=== PATIENT | male | born 1985 | race Caucasian/White ===

== ENCOUNTER 2024-04-01 15:46 | Inpatient (IN) | payer BC, OTHER ==
[2024-04-01 16:46] LABS: Appearance,Urine Clear (Clear); Bilirubin,Urine Negative (Negative); Blood,Urine Negative (Negative); Color,Urine Colorless; Glucose,Urine (UA) Negative (Negative); Ketones,Urine 1+ (Negative); Leukocyte Esterase,Urine Negative (Negative); Nitrite,Urine Negative (Negative); PH, Urine 5.5 (5.0-8.0); Protein,Urine Negative (Negative); Specific Gravity,Urine 1.005 (1.001-1.035); Urobilinogen,Urine <2.0 mg/dL (<2.0)
--- NOTE | 2024-04-01 16:50 | ED ---
Psych HPI - General Chief Complaint: Psychiatric Symptoms Stated Complaint: Suicidal Time Seen by Provider: 04/01/24 15:59 Source: EMS, RN notes reviewed, old records reviewed Mode of arrival: EMS Limitations: altered mental status - History of Present Illness Initial Comments: This is a 38-year-old male with alcohol intoxication coming in under petition for psychiatric evaluation for inappropriate activity for a few days now. MD Complaint: altered mental status, other (Current alcohol intoxication) -: days(s) Associated Psychiatric Symptoms: racing thoughts, auditory hallucinations Quality: constant, changing over time Improves With: none Worsens With: alcohol Context: recent alcohol abuse, significant life stressor Associated Symptoms: confusion Treatments Prior to Arrival: placed on mental health hold - Related Data Home Medications Medication Instructions Recorded Confirmed Levalbuterol Hfa Inhaler [Xopenex 2 puff INHALATION RT-Q4H PRN 04/01/24 04/01/24 Hfa Inhaler] Previous Rx's Medication Instructions Recorded DULoxetine HCL [Cymbalta] 60 mg PO DAILY 30 Days #30 cap 04/06/24 Melatonin 10 mg PO HS tab 04/06/24 hydrOXYzine HCL [Atarax] 10 mg PO TID PRN 30 Days #90 tab 04/06/24 Allergies Allergy/AdvReac Type Severity Reaction Status Date / Time pet danger Allergy Rash/Hives Uncoded 04/01/24 17:03 Review of Systems ROS Statement: Those systems with pertinent positive or pertinent negative responses have been documented in the HPI. ROS Other: All systems not noted in ROS Statement are negative. Past Medical History Past Medical History: Atrial Fibrillation, Asthma History of Any Multi-Drug Resistant Organisms: None Reported Additional Past Surgical History / Comment(s): colostomy bag Past Psychological History: No Psychological Hx Reported Smoking Status: Former smoker Past Alcohol Use History: Heavy, Occasional Past Drug Use History: Marijuana General Exam General appearance: appears intoxicated Head exam: Present: atraumatic, normocephalic, normal inspection Eye exam: Present: normal appearance, PERRL, EOMI. Absent: scleral icterus, conjunctival injection, periorbital swelling ENT exam: Present: normal exam, mucous membranes moist Neck exam: Present: normal inspection. Absent: tenderness, meningismus, lymphadenopathy Respiratory exam: Present: normal lung sounds bilaterally. Absent: respiratory distress, wheezes, rales, rhonchi, stridor Cardiovascular Exam: Present: regular rate, normal rhythm, normal heart sounds. Absent: systolic murmur, diastolic murmur, rubs, gallop, clicks GI/Abdominal exam: Present: soft, normal bowel sounds. Absent: distended, tenderness, guarding, rebound, rigid Extremities exam: Present: normal inspection, full ROM, normal capillary refill. Absent: tenderness, pedal edema, joint swelling, calf tenderness Back exam: Present: normal inspection Neurological exam: Present: alert, oriented X3, CN II-XII intact Psychiatric exam: Present: normal affect, normal mood Skin exam: Present: warm, dry, intact, normal color. Absent: rash Course Vital Signs 04/01/24 04/02/24 04/02/24 15:48 07:19 11:41 Temperature 98.9 F Pulse Rate 88 125 H 122 H Respiratory 20 18 18 Rate Blood Pressure 132/90 142/99 134/88 O2 Sat by Pulse 100 98 99 Oximetry - Reevaluation(s) Reevaluation #1: 04/01/24 18:24 Medical records reviewed Reevaluation #2: Medically clear for psychiatric evaluation Reevaluation #3: Was pt. sent in by a medical professional or institution (, PA, [employer], urgent care, hospital, or penitentiary...) When possible be specific @ -no Did you speak to anyone other than the patient for history (EMS, parent, family, police, friend...)? What history was obtained from this source @ -no Did you review nursing and triage notes (agree or disagree)? Why? @ -agree Are old charts reviewed (outside hosp., previous admission, EMS record, old EKG, old radiological studies, urgent care reports/EKG's, penitentiary records)? Report findings @ -yes Differential Diagnosis (chest pain, altered mental status, abdominal pain women, abdominal pain men, vaginal bleeding, weakness, fever, dyspnea, syncope, headache, dizziness, GI bleed, back pain, seizure, CVA, palpatations, mental health, musculoskeletal)? @ -prior EKG interpreted by me (3pts min.). @ -no X-rays interpreted by me (1pt min.). @ -no CT interpreted by me (1pt min.). @ -no U/S interpreted by me (1pt. min.). @ -no What testing was considered but not performed or refused? (CT, X-rays, U/S, labs)? Why? @ -none What meds were considered but not given or refused? Why? @ -none Did you discuss the management of the patient with other professionals (professionals i.e. , PA, [employer], lab, RT, psych nurse, social service director, mutual fund manager, teacher, coastal/harbor defense officer, onsite case manager)? Give summary @ -no Was smoking cessation discussed for >3mins.? @ -no Was critical care preformed (if so, how long)? @ -no Were there social determinants of health that impacted care today? How? (Homelessness, low income, unemployed, alcoholism, drug addiction, transportation, low edu. Level, literacy, decrease access to med. care, [facility], rehab)? @ -none Was there de-escalation of care discussed even if they declined (Discuss DNR or withdrawal of care, Hospice)? DNR status @ -no What co-morbidities impacted this encounter? (DM, HTN, Smoking, COPD, CAD, Cancer, CVA, ARF, Chemo, Hep., AIDS, mental health diagnosis, sleep apnea, morbid obesity)? @ -none Was patient admitted / discharged? Hospital course, mention meds given and route, prescriptions, significant lab abnormalities, going to OR and other pertinent info. @ - 38 male will be admitted for psychiatric evaluation and treatment transferred to inpatient treatment Admitted Undiagnosed new problem with uncertain prognosis? @ -no Drug Therapy requiring intensive monitoring for toxicity (Heparin, Nitro, Insulin, Cardizem)? @ -no Were any procedures done? @ -no Diagnosis/symptom? @ -Mental health depression and drug abuse Acute, or Chronic, or Acute on Chronic? @ -Acute Uncomplicated (without systemic symptoms) or Complicated (systemic symptoms)? @ -Complicated Side effects of treatment? @ -no Exacerbation, Progression, or Severe Exacerbation? @ -exacerbation Poses a threat to life or bodily function? How? (Chest pain, USA, AR, pneumonia, PE, COPD, DKA, ARF, appy, cholecystitis, CVA, Diverticulitis, Homicidal, Suicidal, threat to staff... and all critical care pts) @ -yes significant mental health disorder Reevaluation #4: Differential Mental Health Depression, anxiety, bipolar, psychosis, schizophrenia, borderline personality, situational depression, adjustment disorder, behavioral disorder, brain tumor, malingering, substance abuse, encephalopathy, medication reaction, dementia, hypothyroidism, degenerative neurologic disorder, lupus.... This is not meant to be all-inclusive list Medical Decision Making - Medical Decision Making 38 male will be admitted for psychiatric evaluation and treatment transferred to inpatient treatment - Lab Data Result diagrams: 04/03/24 08:53 04/03/24 08:53 Lab Results 04/01/24 04/02/24 Range/Units 16:36 08:20 Urine Color Colorless Urine Appearance Clear (Clear) Urine pH 5.5 (5.0-8.0) Ur Specific [place] 1.005 (1.001-1.035) Urine Protein Negative (Negative) Urine Glucose (UA) Negative (Negative) Urine Ketones 1+ H (Negative) Urine Blood Negative (Negative) Urine Nitrite Negative (Negative) Urine Bilirubin Negative (Negative) Urine Urobilinogen <2.0 (<2.0) mg/dL Ur Leukocyte Esterase Negative (Negative) Urine Opiates Screen Not Detected (NotDetected) Ur Oxycodone Screen Not Detected (NotDetected) Urine Methadone Screen Not Detected (NotDetected) Ur Barbiturates Screen Not Detected (NotDetected) U Tricyclic Antidepress Not Detected (NotDetected) Ur Phencyclidine Scrn Not Detected (NotDetected) Ur Amphetamines Screen Not Detected (NotDetected) U Methamphetamines Scrn Not Detected (NotDetected) U Benzodiazepines Scrn Not Detected (NotDetected) Urine Cocaine Screen Not Detected (NotDetected) U Marijuana (THC) Screen Detected H (NotDetected) SARS-CoV-2 (PCR) Not Detected (Not Detectd) Disposition Clinical Impression: Major depressive disorder without psychotic features, Hallucinogen abuse, Cannabis use disorder, Alcohol use disorder, Depression, Acute anxiety Disposition: TRANSFER TO PSYCH HOSP/UNIT Condition: Fair
[2024-04-01 16:57] LABS: Amphetamine Screen,Urine Not Detected (NotDetected); Barbiturate Screen,Urine Not Detected (NotDetected); Benzodiazepines Screen,Urine Not Detected (NotDetected); Cocaine Screen,Urine Not Detected (NotDetected); Methadone Screen, Urine Not Detected (NotDetected); Opiate Screen,Urine Not Detected (NotDetected); Oxycodone Screen, Urine Not Detected (NotDetected); Phencyclidine Screen,Urine Not Detected (NotDetected); Tricyclic Antidepressant,Urine Not Detected (NotDetected); Urn Cannabinoid Scrn Detected (NotDetected)
[2024-04-01] MEDS: LORazepam 1 MG TAB PO STA (17:21)
[2024-04-01] MEDS: diphenhydrAMINE 50 MG CAP PO STA (17:21)
[2024-04-02] MEDS ORDERED: hydrOXYzine HCL 50 MG/ML 1 ML VIAL IM PRN ×2 (11:35)
[2024-04-02] MEDS ORDERED: MAGNESIUM HYDROXIDE 2,400 MG/30 ML CUP PO PRN (11:35)
[2024-04-02] MEDS ORDERED: ACETAMINOPHEN TAB 325 MG TAB PO PRN (11:35)
[2024-04-02] MEDS ORDERED: MAG HYDROX/AL HYDROX/SIMETH 355 ML BOTTLE PO PRN (11:35)
[2024-04-02] MEDS ORDERED: HALOPERIDOL LACTATE 5 MG/ML 1 ML VIAL IM PRN (11:35)
[2024-04-02] MEDS ORDERED: LORazepam 2 MG/ML INJ IM PRN ×2 (11:43)
[2024-04-02] MEDS ORDERED: LORazepam 1 MG TAB PO PRN (11:43)
[2024-04-02] MEDS: DULoxetine HCL 30 MG CAPSULE.DR PO SCH (14:32)
--- NOTE | 2024-04-02 19:28 | P.HP ---
Psychiatric H&P - . H&P Date: 04/02/24 History & Physical: Allergies Allergy/AdvReac Type Severity Reaction Status Date / Time pet danger Allergy Rash/Hives Uncoded 04/01/24 17:03 Vital Signs Temp 98.3 F 04/02/24 12:23 Pulse 106 H 04/02/24 12:23 Resp 14 04/02/24 12:23 BP 135/92 04/02/24 12:23 Pulse Ox 98 04/02/24 12:23 FiO2 Intake & Output 04/01/24 04/02/24 04/02/24 18:59 06:59 18:59 Weight 83.915 kg 78.018 kg Laboratory Last Values Urine Color Colorless 04/01/24 16:36 Urine Appearance Clear (Clear) 04/01/24 16:36 Urine pH 5.5 (5.0-8.0) 04/01/24 16:36 Ur Specific [place] 1.005 (1.001-1.035) 04/01/24 16:36 Urine Protein Negative (Negative) 04/01/24 16:36 Urine Glucose (UA) Negative (Negative) 04/01/24 16:36 Urine Ketones 1+ (Negative) H 04/01/24 16:36 Urine Blood Negative (Negative) 04/01/24 16:36 Urine Nitrite Negative (Negative) 04/01/24 16:36 Urine Bilirubin Negative (Negative) 04/01/24 16:36 Urine Urobilinogen <2.0 mg/dL (<2.0) 04/01/24 16:36 Ur Leukocyte Esterase Negative (Negative) 04/01/24 16:36 Urine Opiates Screen Not Detected (NotDetected) 04/01/24 16:36 Ur Oxycodone Screen Not Detected (NotDetected) 04/01/24 16:36 Urine Methadone Screen Not Detected (NotDetected) 04/01/24 16:36 Ur Barbiturates Screen Not Detected (NotDetected) 04/01/24 16:36 U Tricyclic Antidepress Not Detected (NotDetected) 04/01/24 16:36 Ur Phencyclidine Scrn Not Detected (NotDetected) 04/01/24 16:36 Ur Amphetamines Screen Not Detected (NotDetected) 04/01/24 16:36 U Methamphetamines Scrn Not Detected (NotDetected) 04/01/24 16:36 U Benzodiazepines Scrn Not Detected (NotDetected) 04/01/24 16:36 Urine Cocaine Screen Not Detected (NotDetected) 04/01/24 16:36 U Marijuana (THC) Screen Detected (NotDetected) H 04/01/24 16:36 SARS-CoV-2 (PCR) Not Detected (Not Detectd) 04/02/24 08:20 04/02/24 12:45 IDENTIFYING DATA: Patient is a , employed, 38-year-old male who is presenting with suicidal ideation, homicidal ideation, and substance use. HPI: Patient was brought into the emergency department due to suicidal ideation, with sending a text message to his stating "he was going to put bullet in his brain". He also reportedly threatened Colette and Carol Villela, stating to Colette that he was going to pop her off. Patient is superficially cooperative with assessment and minimizes incidents leading to hospitalization. He endorses self-medicating with mushrooms and becomes tangential often throughout the interview while discussing his strong beliefs that mushrooms are a natural way to help himself. However, he was unwilling to divulge what he feels must be medicated by mushrooms. He simply states he needs to improve his serotonin receptors. Patient reports having drank a fifth of alcohol MOLDER BENCH due to interpersonal conflict with his , and then making damaging statements to her and to the family including the text messages that he sent above and the threats he made to his in-laws ([place]). He admits a long history of alcohol addiction beginning in 2019, drinking up to a fifth daily, with recurrent relapses until June 2023. Since then, he reports being a social drinker until recent binge. Patient also admits to beginning to use mushrooms since 2022 and has been using one and half to 3 and half grams of mushrooms once a month. He does not believe that he is addicted to this substance and has poor insight on the negative consequences of using this during motivational interviewing. However, while discussing his beliefs in mushrooms, he does admit to using them despite the trouble it has created between him and his , leading to her moving away with their children. He denies using substances while around their children. Patient denies any trouble with depression. He endorses fair sleep with melatonin. He reports good appetite, poor attention, and good energy. He denies anxiety. He denies symptoms consistent with micha. He denies any current suicidal ideation and homicidal ideation. He denies auditory and visual hallucinations. He denies any access to weapons/firearms. PSYCH HX: Not currently following up with any mental health provider. He reports hx of being on psychotropic meds but would not discuss this further Hospitalizations: Denies NSSI: Denies SA: Denies PMH: Denies ALLERGIES: Pet dander PCP: Lucia Metzger Head injuries: Denies Seizures: Denies SUBSTANCE HX: Mushrooms: Started using since 2022. 1.5-3.5 grams of mushrooms once month Alcohol: He was drinking up to a fifth daily back in 2019, on/off until he went to [place] on Jun 2023. Occasional drinks currently. Drank fifth prior to admission. Tobacco: Denies Cannabis: Loose leaf vaping 0.5-1 gram daily Denies using other substances SOCIAL/LEGAL HX: for 14 years; been with his since they were 17 years old. 3 children. Highest level of education: Engineering & minor in Math Vocation: it senior software engineer java for [employer] Legal problems: During childhood FAM PSYCH HX: Mother (was on Paxil & ECT), uncle, maternal grandfather committed suicide MENTAL STATUS EXAM: General Appearance: Patient appears to be stated age is alert, directable, and somewhat cooperative. Patient appears to have poor hygiene and grooming. Behavior: Patient is seated without any agitated behavior. Speech: Patient's speech is fluent and nonpressured. Mood/Affect: Patient reports their mood is "fine", affect is irritable Suicidality/Homicidality: Patient denies having any homicidal ideation intent or plan. Denies any suicidal ideations intent or plan Perceptions: Patient denies any visual hallucinations and denies any auditory hallucinations Though content/process: There is no evidence of any delusional thought content and thought process is rather tangential. Minimizing symptoms Memory and concentration: AOX3, grossly intact for the purposes of this session. Can spell "WORLD" backwards Judgment and insight: Poor STRENGTHS/WEAKNESSES: Strength is holding a job and family support. 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 Patient signed adult voluntary form and medication consent and is placed in patient's chart. -Medications : Start Cymbalta 30 mg daily. discussed risks, side effects, benefits, alternatives at length. - CIWA protocol with Ativan. Vitamin replacement. -Patient was counselled on substance abuse and desired to cut back on use. Motivational interviewing. -Patient was informed of the risks, benefits and side effects of the medication and patient verbally consented to taking the medications. Patient signed med consent form and was placed in chart. -Internal Medicine consult to perform medical evaluation and physical. -SW on board for discharge planning. Encourage patient to participate in groups to work on coping skills. 04/02/24 19:08
[2024-04-02] MEDS: LORazepam 1 MG TAB PO PRN (21:43)
[2024-04-02] MEDS: haloperidoL 5 MG TAB PO PRN (22:29)
[2024-04-02] MEDS: hydrOXYzine HCL 25 MG TAB PO PRN (22:29)
[2024-04-02] MEDS: IBUPROFEN 600 MG TAB PO PRN (23:43)
--- NOTE | 2024-04-03 04:11 | P.CONS ---
History of Present Illness - Reason for Consult Consult date: 04/03/24 - History of Present Illness The patient is a 38-year-old male with a PMH of asthma and alcohol abuse who had presented to the emergency room after alcohol intoxication and was petitioned for psychiatric evaluation. The patient was admitted to mental health unit where he was seen and evaluated. The patient reported that he had been feeling down about his life and had thereby decided to drink heavily for the last few d ays. Reports drinking half a liter of hard liquor daily. Denies any additional complaints. Denied experiencing chest discomfort, shortness of breath, fever, chills, cough, nausea, vomiting, abdominal pain, diarrhea. Review of systems: Pertinent positives and negatives as discussed in HPI, a complete review of systems was performed and all other systems are negative. Physical examination: General: non toxic, no distress, appears at stated age, normal weight Derm: no unusual rashes/lesions, no unusual ecchymoses, warm, dry Head: atraumatic, normocephalic, symmetric Eyes: EOMI, no lid lag, anicteric sclera ENT: Nose and ears atraumatic, no thrush, no pharyngeal erythema Neck: trachea midline, supple Mouth: no lip lesion, mucus membranes moist Cardiovascular: S1S2 reg, no murmur, no edema Lungs: CTA bilateral, no rhonchi, no rales , no accessory muscle use Abdominal: soft, nontender to palpation, no guarding Ext: no gross muscle atrophy, no contractures, Neuro: No gross focal neuro deficits noted Psych: Alert, oriented, appropriate affect Assessment: Alcohol abuse Transaminitis Hyponatremia Marijuana abuse Depression and suicidal ideation Imaging: EKG had revealed normal sinus rhythm at [address]/T wave changes noted as reviewed by me. Data Review: Laboratory evaluation had revealed sodium 135, chloride 97, AST 152, ALT 159, with UA unremarkable and urine toxicology positive for marijuana Plan: Monitor for signs of withdrawal with [facility] protocol Monitor CMP Advised on the importance of cessation Defer management of depression and suicidal ideation to primary psychiatry service Thank you for allowing us to participate in the care of this patient. We will follow peripherally. Do not hesitate to contact us with questions. Someone can be reached from the [facility] hospitalist group at all hours of the day at [phone]. Past Medical History Past Medical History: Atrial Fibrillation, Asthma Additional Past Medical History / Comment(s): Thorasic outlet syndrome History of Any Multi-Drug Resistant Organisms: None Reported Additional Past Surgical History / Comment(s): colostomy bag, Thorasic outlet syndrome Past Psychological History: No Psychological Hx Reported Smoking Status: Former smoker Past Alcohol Use History: Heavy, Occasional Past Drug Use History: Marijuana Medications and Allergies Home Medications Medication Instructions Recorded Confirmed Type Levalbuterol Hfa Inhaler [Xopenex 2 puff INHALATION RT-Q4H PRN 04/01/24 04/01/24 History Hfa Inhaler] DULoxetine HCL [Cymbalta] 60 mg PO DAILY 30 Days #30 cap 04/06/24 Rx Melatonin 10 mg PO HS tab 04/06/24 Rx hydrOXYzine HCL [Atarax] 10 mg PO TID PRN 30 Days #90 tab 04/06/24 Rx Allergies Allergy/AdvReac Type Severity Reaction Status Date / Time pet danger Allergy Rash/Hives Uncoded 04/01/24 17:03 Physical Exam Vitals: Vital Signs Temp Pulse Pulse Resp BP BP Pulse Ox 04/02/24 12:23 98.3 F 106 H 14 135/92 98 04/02/24 12:05 98.3 F 106 H 14 135/92 98 04/02/24 11:41 122 H 18 134/88 99 04/02/24 07:19 125 H 18 142/99 98 Intake and Output 04/02/24 04/02/24 04/03/24 14:59 22:59 06:59 Other: Weight 78.018 kg Results CBC & Chem 7: 04/03/24 08:53 04/03/24 08:53
[2024-04-03 09:28] LABS: Anisocytosis Slight; Basophils # (A) 0.1 k/uL (0-0.2); Basophils % (A) 1 %; Eosinophils # (A) 0.3 k/uL (0-0.7); Eosinophils % (A) 5 %; HCT 46.2 % (39.0-53.0); HGB 14.3 gm/dL (13.0-17.5); Lymphocytes # (A) 1.3 k/uL (1.0-4.8); Lymphocytes % (A) 20 %; MCH 26.7 pg (25.0-35.0); MCHC 30.9 g/dL (31.0-37.0); MCV 86.3 fL (80.0-100.0); Mean Platelet Volume 7.5; Monocytes # (A) 0.4 k/uL (0-1.0); Monocytes % (A) 6 %; Neutrophils # (A) 4.3 k/uL (1.3-7.7); Neutrophils % (A) 65 %; Platelet Count 316 k/uL (150-450); RBC 5.35 m/uL (4.30-5.90); RDW 16.6 % (11.5-15.5); WBC 6.5 k/uL (3.8-10.6)
[2024-04-03 09:44] LABS: ALT 159 U/L (4-49); AST 152 U/L (17-59); African American GFR (CKD) >90 (>60 ml/min/1.73 sqM); Albumin 4.8 g/dL (3.5-5.0); Alkaline Phosphatase 73 U/L (38-126); Anion Gap 10 mmol/L; Bilirubin, Delta 0.4 mg/dL (0.0-0.2); Bilirubin,Unconjugated 3.2 mg/dL (0.0-1.1); Blood Urea Nitrogen 16 mg/dL (9-20); Calcium 10.2 mg/dL (8.4-10.2); Carbon Dioxide 28 mmol/L (22-30); Chloride 97 mmol/L (98-107); Glucose 104 mg/dL (74-99); Non-African American GFR(CKD) >90 (>60 ml/min/1.73 sqM); Potassium 4.4 mmol/L (3.5-5.1); Sodium 135 mmol/L (137-145); Total Bilirubin 3.6 mg/dL (0.2-1.3); Total Protein 7.1 g/dL (6.3-8.2)
--- NOTE | 2024-04-03 13:22 | P.PN ---
Progress Note - Text Progress Note Date: 04/03/24 Interval History: Patient was seen wandering the hallways and was directable and agreeable to sp kyra with script writer in the office. Patient continues to be fixated on his belief in "natural treatment ". He explains that this includes his hope to start practicing spiritual practices, and his intent to continue using mushrooms. Discussed his blood work including elevated liver enzymes and patient states that he plans to discontinue her alcohol use. However, he admits later that he plans to use occasionally. Patient is grandiose and states that "I'm generally the smartest person in the room "and that he understands things are molecular level. He is resistant to the idea of even considering discontinuing mushroom use. He states that he has been tolerating Cymbalta well but has noticed feeling more tired with Vistaril 25 mg as needed. He requests further Vistaril dose to be lowered. He endorses that his mood is "great ". He says he tried to speak with his but she has not been responding to him much. He is hopeful to show her that he is safe to come home by being here. However, patient continues to be superficially cooperative. He signed intent to terminate AMA form yesterday. At this time patient denies any suicidal or homicidal ideations, intent or plan. Patient denies any auditory, visual hallucinations and denies any paranoia or delusions. Patient denies any side effects from the medications and has been compliant with meds. Mental Status Exam: General Appearance: Patient appears to be stated age is alert, directable, and somewhat cooperative. Patient appears to have poor hygiene and grooming. Behavior: Patient is seated without any agitated behavior. Speech: Patient's speech is fluent and nonpressured. Mood/Affect: Patient reports their mood is "great", affect is constricted Suicidality/Homicidality: Patient denies having any homicidal ideation intent or plan. Denies any suicidal ideations intent or plan Perceptions: Patient denies any visual hallucinations and denies any auditory hallucinations Though content/process: There is no evidence of any delusional thought content and thought process is rather tangential. Minimizing symptoms Memory and concentration: AOX3, grossly intact for the purposes of this session. 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 Patient signed adult voluntary form and medication consent and is placed in patient's chart. Signed AMA yesterday -Medications : Cymbalta 30 mg daily. discussed risks, side effects, benefits, alternatives at length. - CIWA protocol with Ativan. Vitamin replacement. -Vistaril PRN for anxiety -Patient was counselled on substance abuse and desired to cut back on use. Motivational interviewing. -Patient was informed of the risks, benefits and side effects of the medication and patient verbally consented to taking the medications. Patient signed med consent form and was placed in chart. -Internal Medicine consult to perform medical evaluation and physical. -SW on board for discharge planning. Encourage patient to participate in groups to work on coping skills.
[2024-04-03] MEDS: hydrOXYzine HCL 10 MG TAB PO PRN (22:00)
[2024-04-03] MEDS: hydrOXYzine pamoate 25 MG CAP PO PRN (22:41)
[2024-04-03 22:54] LABS: Chol/HDL Ratio 1.79 Ratio; LDL Cholesterol,Calculated 72.7 mg/dL (0.0-131.0); VLDL Calculation 16.28 mg/dL (5.00-40.00)
[2024-04-04] MEDS: MELATONIN 5 MG TABLET PO STA (01:09)
--- NOTE | 2024-04-04 12:03 | P.PN ---
Progress Note - Text Progress Note Date: 04/04/24 Interval History: Patient was seen wandering the hallways and was directable and agreeable to sp kyra with signwriter in the office. Patient states that he is not having any withdraw symptoms from alcohol. He claims the medications are doing pretty good for him. He is endorsing some anxiety from talking to his , who states that she is wanting a divorce. He states that his sleep is not good, and he has a problem initiating sleep. Patient is going to some groups, and states that his appetite is fair. Tool Repair Technician spoke with patient about going to rehab, patient states that he does not crave alcohol, and does not have a problem with alcohol. At this time patient denies any suicidal or homicidal ideations, intent or plan. Patient denies any auditory, visual hallucinations and denies any paranoia or delusions. Patient denies any side effects from the medications and has been compliant with meds. Mental Status Exam: General Appearance: Patient appears to be stated age is alert, directable, and somewhat cooperative. Patient appears to have improved hygiene and grooming. Behavior: Patient is seated without any agitated behavior. Speech: Patient's speech is fluent and nonpressured. Mood/Affect: Patient reports their mood is improving, affect is constricted Suicidality/Homicidality: Patient denies having any homicidal ideation intent or plan. Denies any suicidal ideations intent or plan Perceptions: Patient denies any visual hallucinations and denies any auditory hallucinations Though content/process: There is no evidence of any delusional thought content and thought process is linear and goal orientated. Minimizing symptoms Memory and concentration: AOX3, grossly intact for the purposes of this session. Judgment and insight: Poor, mildly improving Assessment Major depressive disorder without psychotic features, Alcohol use disorder Other hallucinogen use disorder - psilocybin Cannabis use disorder Plan: -Patient is admitted under voluntary status to [facility]HU for stabilization of psychiatric symptoms and safety. Patient signed adult voluntary form and medication consent and is placed in patient's chart. Signed AMA Thursday, patient rescinded the AMA on 04/04. -Medications : increase Cymbalta 60mg daily for depression/anxiety, add melatonin 10mg qhs for sleep. patient was offered anti cravings meds and declined at this time. -CIWA protocol with Ativan. Vitamin replacement. -Vistaril PRN for anxiety -SW on board for discharge planning. Encourage patient to participate in groups to work on coping skills. Patient refusing rehab at this time. rescinded AMA today. likely discharge in 2-3 days.
[2024-04-04] MEDS ORDERED: MELATONIN 5 MG TABLET PO SCH (21:00)
[2024-04-04] MEDS: MELATONIN 5 MG TABLET PO SCH (21:54)
[2024-04-05 07:16] VITALS: RESP 16
[2024-04-05] MEDS: DULoxetine HCL 60 MG CAPSULE.DR PO SCH (09:03)
--- NOTE | 2024-04-05 10:06 | P.PN ---
Progress Note - Text Progress Note Date: 04/05/24 Interval History: Patient was seen wandering the hallways and was directable and agreeable to sp kyra with commercial lines underwriter in the office. Patient states that he is feeling pretty good today. He states that his sleep was better last night. He states he was pretty anxious last night, due to his marital problems. Patient is going to groups, and interacting appropriately with his peers on the unit. He states that his appetite is fair. At this time patient denies any suicidal or homicidal ideations, intent or plan. Patient denies any auditory, visual hallucinations and denies any paranoia or delusions. Patient denies any side effects from the medications and has been compliant with meds. Mental Status Exam: General Appearance: Patient appears to be stated age is alert, directable, and somewhat cooperative. Patient appears to have improved hygiene and grooming. Behavior: Patient is seated without any agitated behavior. Speech: Patient's speech is fluent and nonpressured. Mood/Affect: Patient reports their mood is improving, affect is constricted mildly improving Suicidality/Homicidality: Patient denies having any homicidal ideation intent or plan. Denies any suicidal ideations intent or plan Perceptions: Patient denies any visual hallucinations and denies any auditory hallucinations Though content/process: There is no evidence of any delusional thought content and thought process is linear and goal orientated. Memory and concentration: AOX3, grossly intact for the purposes of this session. Judgment and insight: improving Assessment Major depressive disorder without psychotic features, Alcohol use disorder Other hallucinogen use disorder - psilocybin Cannabis use disorder Plan: -Patient is admitted under voluntary status to MHU for stabilization of psychiatric symptoms and safety. Patient signed adult voluntary form and medication consent and is placed in patient's chart. Signed AMA Thursday, patient rescinded the AMA on 04/04. -Medications : Cymbalta 60mg daily for depression/anxiety, melatonin 10mg qhs for sleep. patient was offered anti cravings meds and declined at this time. -CIWA protocol with Ativan. Vitamin replacement. -Vistaril PRN for anxiety -SW on board for discharge planning. Encourage patient to participate in groups to work on coping skills. Patient refusing rehab at this time. rescinded AMA . likely discharge tomorrow
[2024-04-06 09:55] VITALS: BP 169/88; PULSE 112; TEMP 97.2
--- NOTE | 2024-04-06 10:10 | P.DS ---
Providers Date of admission: 04/02/24 11:18 Expected date of discharge: 04/06/24 Attending physician: Sam Talley MD Consults: 04/02/24 11:35 Consult Physician Routine Consulting Provider: Nancy Physician Consult Reason/Comments: H & P w/medical management and medication mgmt Do you want consulting provider notified?: Yes Primary care physician: Stated None - Discharge Diagnosis(es) (1) Major depressive disorder without psychotic features Current Visit: Yes Status: Acute Priority: High (2) Alcohol use disorder Current Visit: Yes Status: Acute Priority: Medium (3) Hallucinogen abuse Current Visit: Yes Status: Acute Priority: High (4) Cannabis use disorder Current Visit: Yes Status: Acute Priority: Medium Hospital Course: Admission HPI: Admission note was completed by Dr Bocanegra "Patient was brought into the emergency department due to suicidal ideation, with sending a text message to his stating "he was going to put bullet in his brain". He also reportedly threatened Colette and Carol Villela, stating to Colette that he was going to pop her off. Patient is superficially cooperative with assessment and minimizes incidents leading to hospitalization. He endorses self-medicating with mushrooms and becomes tangential often throughout the interview while discussing his strong beliefs that mushrooms are a natural way to help himself. However, he was unwilling to divulge what he feels must be medicated by mushrooms. He simply states he needs to improve his serotonin receptors. 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 He admits a long history of alcohol addiction beginning in 2019, drinking up to a fifth daily, with recurrent relapses until June 2023. Since then, he reports being a social drinker until recent binge. Patient also admits to beginning to use mushrooms since 2022 and has been using one and half to 3 and half grams of mushrooms once a month. He does not believe that he is addicted to this substance and has poor insight on the negative consequences of using this during motivational interviewing. However, while discussing his beliefs in mushrooms, he does admit to using them despite the trouble it has created between him and his , leading to her moving away with their children. He denies using substances while around their children. Patient denies any trouble with depression. He endorses fair sleep with melatonin. He reports good appetite, poor attention, and good energy. He denies anxiety. He denies symptoms consistent with micha. He denies any current suicidal ideation and homicidal ideation. He denies auditory and visual hallucinations. He denies any access to weapons/firearms." Hospital course: Upon admission to the unit patient was [directable and agreeable to commence treatment and signed adult voluntary form], shortly after patient signed an AMA however patient ended up rescinding his AMA. Patient got along well with other patients on the unit and followed unit protocol. Patient was compliant with the medications and denied any side effects throughout hospital course. Patient was started on Cymbalta increased to dose of 60 mg daily for depression/anxiety, melatonin 10 mg nightly for sleep, patient was offered anticraving medications for alcohol however refused them. Patient spoke of his stressors and engaged in therapy both group and individual. Patient was also seen by medical team for history and physical exam. Throughout the course of the hospitalization patient gradually improved with regards to mood, anxiety, sleep and became more future oriented with improved insight and judgment. On the day of discharge patient denied any suicidal or homicidal ideations intent or plan denied any auditory or visual hallucinations. Patient endorsed wanting to live for his health and family. The patient denied any access to guns or weapons. Patient denied any paranoia and did not endorse any delusions. Patient does have a significant history of substance abuse and was counseled on abstaining from all substances including alcohol and marijuana. Patient was offered however declined inpatient substance-abuse rehab. Patient was also counseled on the medications and need for regular compliance and was encouraged to follow-up with their outpatient appointment for mental health and also for primary care. Prior to discharge a family meeting will be arranged by social worker aide to answer any questions and ensure safety upon discharge. Mental status exam: General Appearance: Patient appears to be thin, wearing glasses, stated age is alert, pleasant, and cooperative. Patient is in no acute distress and has improved hygiene and grooming Behavior: Patient is calmly seated without any agitated behavior. Speech: Patient's speech is fluent and nonpressured. Mood/Affect: Patient reports their mood is "better", affect is congruent and euthymic. Suicidality/Homicidality: Patient denies having any suicidal or homicidal ideation intent or plan. Perceptions: Patient denies any auditory or visual hallucinations. Though content/process: There is no evidence of any delusional thought content and thought process is linear and goal-directed. More future oriented Memory and concentration: AOX3, grossly intact for the purposes of this session. Can spell "WORLD" backwards correctly. Judgment and insight: improved with guarded prognosis Impression: Major depressive disorder without psychotic features, Alcohol use disorder Other hallucinogen use disorder - psilocybin Cannabis use disorder Plan: -Continue with discharge today as patient has improved and stabilized psychiatrically and is not currently an imminent threat to himself and/or others. Patient will remain at chronically elevated risk for harm to self and/or others due to his impulsivity and polysubstance abuse. -Continue medications: Cymbalta 60 mg daily for mood/anxiety, melatonin 10 mg nightly for sleep. -Patient was counseled on the need for medication compliance and appropriate follow-up at mental health and also primary care for medical issues. Patient verbalized understanding and agreed. -Social work to arrange for and conduct family meeting to ensure safety upon discharge and answer any questions/concerns. Social work also to arrange for patients follow up appointments for psychiatric care along with follow up with primary care provider. -Patient counseled on abstaining from recreational drugs and marijuana and alcohol. Was informed/educated on the adverse effects on their physical and mental health. Patient verbally agreed and understood. Patient was offered substance abuse treatment however declined at this time. -Patient was instructed to return to the hospital or seek immediate medical care if their psychiatric or medical symptoms do worsen or reoccur. Allergies Allergy/AdvReac Type Severity Reaction Status Date / Time pet danger Allergy Rash/Hives Uncoded 04/01/24 17:03 Laboratory Results WBC 6.5 k/uL (3.8-10.6) 04/03/24 08:53 RBC 5.35 m/uL (4.30-5.90) 04/03/24 08:53 Hgb 14.3 gm/dL (13.0-17.5) 04/03/24 08:53 Hct 46.2 % (39.0-53.0) 04/03/24 08:53 MCV 86.3 fL (80.0-100.0) 04/03/24 08:53 MCH 26.7 pg (25.0-35.0) 04/03/24 08:53 MCHC 30.9 g/dL (31.0-37.0) L 04/03/24 08:53 RDW 16.6 % (11.5-15.5) H 04/03/24 08:53 Plt Count 316 k/uL (150-450) 04/03/24 08:53 MPV 7.5 04/03/24 08:53 Neutrophils % 65 % 04/03/24 08:53 Lymphocytes % 20 % 04/03/24 08:53 Monocytes % 6 % 04/03/24 08:53 Eosinophils % 5 % 04/03/24 08:53 Basophils % 1 % 04/03/24 08:53 Neutrophils # 4.3 k/uL (1.3-7.7) 04/03/24 08:53 Lymphocytes # 1.3 k/uL (1.0-4.8) 04/03/24 08:53 Monocytes # 0.4 k/uL (0-1.0) 04/03/24 08:53 Eosinophils # 0.3 k/uL (0-0.7) 04/03/24 08:53 Basophils # 0.1 k/uL (0-0.2) 04/03/24 08:53 Anisocytosis Slight 04/03/24 08:53 Sodium 135 mmol/L (137-145) L 04/03/24 08:53 Potassium 4.4 mmol/L (3.5-5.1) 04/03/24 08:53 Chloride 97 mmol/L (98-107) L 04/03/24 08:53 Carbon Dioxide 28 mmol/L (22-30) 04/03/24 08:53 Anion Gap 10 mmol/L 04/03/24 08:53 BUN 16 mg/dL (9-20) 04/03/24 08:53 Creatinine 0.79 mg/dL (0.66-1.25) 04/03/24 08:53 Est GFR (CKD-EPI)AfAm >90 (>60 ml/min/1.73 sqM) 04/03/24 08:53 Est GFR (CKD-EPI)NonAf >90 (>60 ml/min/1.73 sqM) 04/03/24 08:53 Glucose 104 mg/dL (74-99) H 04/03/24 08:[address] Glu mg/dL 114 mg/dL 04/03/24 08:57 Hemoglobin A1c 5.6 % (<=6.0) 04/03/24 08:57 Calcium 10.2 mg/dL (8.4-10.2) 04/03/24 08:53 Total Bilirubin 3.6 mg/dL (0.2-1.3) H 04/03/24 08:53 Conjugated Bilirubin 0.0 mg/dL (0.0-0.3) 04/03/24 08:53 Unconjugated Bilirubin 3.2 mg/dL (0.0-1.1) H 04/03/24 08:53 Delta Bilirubin 0.4 mg/dL (0.0-0.2) H 04/03/24 08:53 AST 152 U/L (17-59) H 04/03/24 08:53 ALT 159 U/L (4-49) H 04/03/24 08:53 Alkaline Phosphatase 73 U/L (38-126) 04/03/24 08:53 Total Protein 7.1 g/dL (6.3-8.2) 04/03/24 08:53 Albumin 4.8 g/dL (3.5-5.0) 04/03/24 08:53 Triglycerides 81.40 mg/dL (0.00-149.00) 04/03/24 08:53 Cholesterol 202.00 mg/dL (0.00-200.00) H 04/03/24 08:53 LDL Cholesterol, Calc 72.7 mg/dL (0.0-131.0) 04/03/24 08:53 VLDL Cholesterol, Calc 16.28 mg/dL (5.00-40.00) 04/03/24 08:53 HDL Cholesterol 113.00 mg/dL (40.00-60.00) H 04/03/24 08:53 Cholesterol/HDL Ratio 1.79 Ratio 04/03/24 08:53 TSH 1.490 mIU/L (0.465-4.680) 04/03/24 08:53 Urine Color Colorless 04/01/24 16:36 Urine Appearance Clear (Clear) 04/01/24 16:36 Urine pH 5.5 (5.0-8.0) 04/01/24 16:36 Ur Specific [place] 1.005 (1.001-1.035) 04/01/24 16:36 Urine Protein Negative (Negative) 04/01/24 16:36 Urine Glucose (UA) Negative (Negative) 04/01/24 16:36 Urine Ketones 1+ (Negative) H 04/01/24 16:36 Urine Blood Negative (Negative) 04/01/24 16:36 Urine Nitrite Negative (Negative) 04/01/24 16:36 Urine Bilirubin Negative (Negative) 04/01/24 16:36 Urine Urobilinogen <2.0 mg/dL (<2.0) 04/01/24 16:36 Ur Leukocyte Esterase Negative (Negative) 04/01/24 16:36 Urine Opiates Screen Not Detected (NotDetected) 04/01/24 16:36 Ur Oxycodone Screen Not Detected (NotDetected) 04/01/24 16:36 Urine Methadone Screen Not Detected (NotDetected) 04/01/24 16:36 Ur Barbiturates Screen Not Detected (NotDetected) 04/01/24 16:36 U Tricyclic Antidepress Not Detected (NotDetected) 04/01/24 16:36 Ur Phencyclidine Scrn Not Detected (NotDetected) 04/01/24 16:36 Ur Amphetamines Screen Not Detected (NotDetected) 04/01/24 16:36 U Methamphetamines Scrn Not Detected (NotDetected) 04/01/24 16:36 U Benzodiazepines Scrn Not Detected (NotDetected) 04/01/24 16:36 Urine Cocaine Screen Not Detected (NotDetected) 04/01/24 16:36 U Marijuana (THC) Screen Detected (NotDetected) H 04/01/24 16:36 SARS-CoV-2 (PCR) Not Detected (Not Detectd) 04/02/24 08:20 Vital Signs Temp 97.8 F 04/05/24 06:39 Pulse 100 04/05/24 15:54 Resp 16 04/05/24 06:39 BP 128/89 04/05/24 15:54 Pulse Ox 99 04/05/24 06:39 FiO2 Patient Condition at Discharge: Stable Plan - Discharge Summary Discharge Rx Participant: No New Discharge Prescriptions: New hydrOXYzine HCL [Atarax] 10 mg PO TID PRN 30 Days #90 tab PRN Reason: Anxiety DULoxetine HCL [Cymbalta] 60 mg PO DAILY 30 Days #30 cap Melatonin 10 mg PO HS tab Continue Levalbuterol Hfa Inhaler [Xopenex Hfa Inhaler] 2 puff INHALATION RT-Q4H PRN PRN Reason: Wheezing Discharge Medication List Levalbuterol Hfa Inhaler [Xopenex Hfa Inhaler] 2 puff INHALATION RT-Q4H PRN 04/01/24 [History] DULoxetine HCL [Cymbalta] 60 mg PO DAILY 30 Days #30 cap 04/06/24 [Rx] Melatonin 10 mg PO HS tab 04/06/24 [Rx] hydrOXYzine HCL [Atarax] 10 mg PO TID PRN 30 Days #90 tab 04/06/24 [Rx] Follow up Appointment(s)/Referral(s[facility] - 04/11/24 11:30 am (04/11 11:30am paperwork 04/11 12:00-13:00 with Johnnie Lund) None,Stated [Primary Care Provider] - 1-2 days Discharge Disposition: HOME SELF-CARE
--- NOTE | 2024-04-08 03:45 | P.CONS ---
History of Present Illness - Reason for Consult Consult date: 04/08/24 Past Medical History Past Medical History: Atrial Fibrillation, Asthma Additional Past Medical History / Comment(s): Thorasic outlet syndrome History of Any Multi-Drug Resistant Organisms: None Reported Additional Past Surgical History / Comment(s): colostomy bag, Thorasic outlet syndrome Past Psychological History: No Psychological Hx Reported Smoking Status: Former smoker Past Alcohol Use History: Heavy, Occasional Past Drug Use History: Marijuana Medications and Allergies Home Medications Medication Instructions Recorded Confirmed Type Levalbuterol Hfa Inhaler [Xopenex 2 puff INHALATION RT-Q4H PRN 04/01/24 04/01/24 History Hfa Inhaler] DULoxetine HCL [Cymbalta] 60 mg PO DAILY 30 Days #30 cap 04/06/24 Rx Melatonin 10 mg PO HS tab 04/06/24 Rx hydrOXYzine HCL [Atarax] 10 mg PO TID PRN 30 Days #90 tab 04/06/24 Rx Allergies Allergy/AdvReac Type Severity Reaction Status Date / Time pet danger Allergy Rash/Hives Uncoded 04/01/24 17:03 Results CBC & Chem 7: 04/03/24 08:53 04/03/24 08:53
== END 2024-04-06 12:15 | disposition home or self-care (01) | DRG 881 ==
LOC: EC 15:46 → 3MHU 04-02 11:18
PROVIDERS: ADMIT Psychiatry & Neurology Psychiatry; ATTEND Psychiatry & Neurology Psychiatry
DX: F32.9 Major depressive disorder, single episode, unspecified (principal); R45.851 Suicidal ideations; F10.24 Alcohol dependence with alcohol-induced mood disorder; E87.1 Hypo-osmolality and hyponatremia; I48.91 Unspecified atrial fibrillation; R45.850 Homicidal ideations; J45.909 Unspecified asthma, uncomplicated; F16.10 Hallucinogen abuse, uncomplicated; F12.10 Cannabis abuse, uncomplicated; F10.229 Alcohol dependence with intoxication, unspecified; R74.01 Elevation of levels of liver transaminase levels; F41.9 Anxiety disorder, unspecified; Z87.891 Personal history of nicotine dependence; Z11.52 Encounter for screening for COVID-19; Z93.3 Colostomy status; Z79.899 Other long term (current) drug therapy; Z63.0 Problems in relationship with spouse or partner; Z71.41 Alcohol abuse counseling and surveillance of alcoholic; Z71.51 Drug abuse counseling and surveillance of drug abuser
CPT/HCPCS: 80053; 80061; 80306; 81003; 82075; 82248; 83036; 84443; 85025; 87635; 93005; 99285

== ENCOUNTER 2024-04-10 12:26 | Emergency (ER) | payer BC ==
--- NOTE | 2024-04-10 13:35 | ED ---
General Adult HPI - General Chief complaint: Psychiatric Symptoms Stated complaint: Petition Time Seen by Provider: 04/10/24 12:58 Source: patient Mode of arrival: ambulatory Limitations: no limitations - History of Present Illness Initial comments: Dictation was produced using [employer] dictation software. please excuse any grammatical, word or spelling errors. Chief Complaint: 38-year-old male brought into the emergency department for psychiatric evaluation History of Present Illness: Patient 30-year-old male patient allegedly had several alcoholic beverages prior to coming to the ER. Patient was brought by police apparently patient has been having psychiatric symptoms. Patient denies such claims states that he is arguing with his and called the national sales consultant on him. The ROS documented in this emergency department record has been reviewed and confirmed by me. Those systems with pertinent positive or negative responses have been documented in the HPI. All other systems are other negative and/or noncontributory. - Related Data Home Medications Medication Instructions Recorded Confirmed Levalbuterol Hfa Inhaler [Xopenex 2 puff INHALATION RT-Q4H PRN 04/01/24 04/10/24 Hfa Inhaler] DULoxetine HCL [Cymbalta] 60 mg PO DIRECTED 04/10/24 04/10/24 hydrOXYzine HCL [Atarax] 10 mg PO DIRECTED PRN 04/10/24 04/10/24 Previous Rx's Medication Instructions Recorded Melatonin 10 mg PO HS tab 04/06/24 Allergies Allergy/AdvReac Type Severity Reaction Status Date / Time pet danger Allergy Rash/Hives Uncoded 04/10/24 13:51 Review of Systems ROS Statement: Those systems with pertinent positive or pertinent negative responses have been documented in the HPI. ROS Other: All systems not noted in ROS Statement are negative. Past Medical History Past Medical History: Atrial Fibrillation, Asthma Additional Past Medical History / Comment(s): Thorasic outlet syndrome History of Any Multi-Drug Resistant Organisms: None Reported Additional Past Surgical History / Comment(s): colostomy bag Past Psychological History: Unable to Obtain Smoking Status: Former smoker Past Alcohol Use History: Heavy, Occasional Past Drug Use History: Marijuana General Exam - General Exam Comments Initial Comments: General: Well-appearing, nontoxic, no acute distress. Head: Normocephalic, atraumatic Eyes: PERRLA, EOMI ENT: Airway patent Chest: Nonlabored breathing Skin: No visual rash, normal skin tone Neuro: Alert and oriented 3 Musculoskeletal: No gross abnormalities Limitations: no limitations Course Vital Signs 04/10/24 04/10/24 12:34 20:33 Temperature 97.5 F L 98.1 F Pulse Rate 107 H 76 Respiratory 20 16 Rate Blood Pressure 138/81 112/76 O2 Sat by Pulse 97 Oximetry - Reevaluation(s) Reevaluation #1: 04/17/24 21:10 Patient was reviewed at later date. Patient was eval by EPS and was cleared for discharge. Medical Decision Making - Medical Decision Making Was pt. sent in by a medical professional or institution (, PA, EMERGING TECHNOLOGIES DIRECTOR, urgent care, hospital, or longterm...) When possible be specific @ -No Did you speak to anyone other than the patient for history (EMS, parent, family, police, friend...)? What history was obtained from this source @ -No Did you review nursing and triage notes (agree or disagree)? Why? @ -I reviewed and agree with nursing and triage notes Were old charts reviewed (outside hosp., previous admission, EMS record, old EKG, old radiological studies, urgent care reports/EKG's, longterm records)? Report findings @ -No old charts were reviewed Differential Diagnosis (chest pain, altered mental status, abdominal pain women, abdominal pain men, vaginal bleeding, musculoskeletal, weakness, fever, d yspnea, syncope, headache, dizziness, GI bleed, back pain, seizure, CVA, palpatations, mental health)? @ -Differential Mental Health: Depression, anxiety, bipolar, psychosis, schizophrenia, borderline personality, situational depression, adjustment disorder, behavioral disorder, brain tumor, malingering, substance abuse, encephalopathy, medication reaction, dementia, hypothyroidism, degenerative neurologic disorder, lupus.... This is not meant to be all-inclusive list EKG interpreted by me (3pts min.). @ -None done X-rays interpreted by me (1pt min.). @ -None done CT interpreted by me (1pt min.). @ -None done U/S interpreted by me (1pt. min.). @ -None done What testing was considered but not performed or refused? (CT, X-rays, U/S, labs)? Why? @ -None What meds were considered but not given or refused? Why? @ -None Was smoking cessation discussed for >3mins.? @ -No Were there social determinants of health that impacted care today? How? (Homelessness, low income, unemployed, alcoholism, drug addiction, transportation, low edu. Level, literacy, decrease access to med. care, [facility], rehab)? @ -No Was there de-escalation of care discussed even if they declined (Discuss DNR or withdrawal of care, Hospice)? DNR status @ -No What co-morbidities impacted this encounter? (DM, HTN, Smoking, COPD, CAD, Cancer, CVA, ARF, Chemo, Hep., AIDS, mental health diagnosis, sleep apnea, morb id obesity)? @ -None Was patient admitted / discharged? Hospital course, mention meds given and route, prescriptions, significant lab abnormalities, going to OR and other pertinent info. @ -38-year-old male presents to the emergency department for psychiatric evaluation. Vital signs stable. Breath alcohol test is 0.186. Patient pending sobriety for EPS eval. Patient care signed out to Dr. Vidales at 4:00 PM Did you discuss the management of the patient with other professionals (professionals i.e. , PA, EMERGING TECHNOLOGIES DIRECTOR, lab, RT, psych nurse, social human services assistants, enterprise sales executive, teacher, low altitude air defense officer, case management assistant)? Give summary @ -No Was critical care preformed (if so, how long)? @ -No Undiagnosed new problem with uncertain prognosis? @ -No Drug Therapy requiring intensive monitoring for toxicity (Heparin, Nitro, Insulin, Cardizem)? @ -No Were any procedures done? @ -No Diagnosis/symptom? Acute, or Chronic, or Acute on Chronic? Uncomplicated (without systemic symptoms) or Complicated (systemic symptoms)? @ -Psychotic symptoms Side effects of treatment? @ -No Exacerbation, Progression, or Severe Exacerbation? @ -No Poses a threat to life or bodily function? How? (Chest pain, [place], [place], pneumonia, PE, COPD, DKA, ARF, appy, cholecystitis, CVA, Diverticulitis, Homicidal, Suicidal, threat to staff... and all critical care pts) @ -yes Disposition Clinical Impression: Suicidal ideation Disposition: HOME SELF-CARE Condition: Stable Is patient prescribed a controlled substance at d/c from ED?: No Referrals: None,Stated [Primary Care Provider] - 1-2 days
[2024-04-10] MEDS: LORazepam 2 MG/ML INJ IV STA (15:12)
[2024-04-10] MEDS: LORazepam 2 MG/ML INJ IM STA (15:13)
[2024-04-10 20:35] VITALS: BP 112/76; PULSE 76; RESP 16; TEMP 98.1
== END 2024-04-10 20:35 | disposition home or self-care (01) ==
LOC: EC 12:26
DX: R45.851 Suicidal ideations (principal); Z91.09 Other allergy status, other than to drugs and biological substances; Z87.891 Personal history of nicotine dependence
CPT/HCPCS: 82075; 99284; 96372; J2060

== ENCOUNTER 2024-04-27 15:39 | Emergency (ER) | payer BC ==
[2024-04-27 19:12] LABS: Amphetamine Screen,Urine Not Detected (NotDetected); Barbiturate Screen,Urine Not Detected (NotDetected); Benzodiazepines Screen,Urine Not Detected (NotDetected); Cocaine Screen,Urine Not Detected (NotDetected); Methadone Screen, Urine Not Detected (NotDetected); Opiate Screen,Urine Not Detected (NotDetected); Oxycodone Screen, Urine Not Detected (NotDetected); Phencyclidine Screen,Urine Not Detected (NotDetected); Tricyclic Antidepressant,Urine Not Detected (NotDetected); Urn Cannabinoid Scrn Not Detected (NotDetected)
--- NOTE | 2024-04-27 19:54 | ED ---
General Adult HPI - General Chief complaint: Psychiatric Symptoms Stated complaint: petition Time Seen by Provider: 04/27/24 16:23 Source: police Mode of arrival: ambulatory Limitations: no limitations - History of Present Illness Initial comments: Patient presents today on court order for psychiatric evaluation after being released from [facility]. Patient states he is here due to court order.Denies SI/HI, hallucinations, anxiety, trouble sleeping. Denies alcohol or drug abuse. Denies fevers, chills, headaches, dizziness. Denies any complaints. - Related Data Home Medications Medication Instructions Recorded Confirmed No Known Home Medications 04/27/24 04/27/24 Allergies Allergy/AdvReac Type Severity Reaction Status Date / Time pet danger Allergy Rash/Hives Uncoded 04/27/24 20:17 Review of Systems ROS Statement: Those systems with pertinent positive or pertinent negative responses have been documented in the HPI. ROS Other: All systems not noted in ROS Statement are negative. Past Medical History Past Medical History: Atrial Fibrillation, Asthma Additional Past Medical History / Comment(s): Thorasic outlet syndrome History of Any Multi-Drug Resistant Organisms: None Reported Past Surgical History: Bowel Resection Additional Past Surgical History / Comment(s): colostomy bag Past Psychological History: Unable to Obtain Smoking Status: Former smoker Past Alcohol Use History: Heavy, Occasional Past Drug Use History: Marijuana General Exam - General Exam Comments Initial Comments: PE: CONSTITUTIONAL: no apparent distress, well appearing SKIN: warm, dry, no jaundice, hives or petechiae EYES: pupils are equally round, extraocular movements intact without nystagmus, clear conjunctiva, non-icteric sclera HENT: normocephalic, atraumatic, moist mucus membranes, oropharynx clear without exudates NECK: Nontender and supple with no nuchal rigidity, no lymphadenopathy, full range of motion PULMONARY: clear to auscultation without wheezes, rhonchi, or rales, normal excursion, no accessory muscle use and no stridor CARDIOVASCULAR: regular rate, rhythm, normal S1 and S2. No appreciated murmurs. Strong radial pulses with intact distal perfusion GASTROINTESTINAL: soft, non-tender, non-distended, no palpable masses, no rebound or guarding LYMPHATICS: no edema in lower extremities, MUSCULOSKELETAL: Extremities have no gross deformity, no edema, redness, or swelling NEUROLOGIC: _a/o x 3, GCS 15, normal mentation and speech. Moves all extremities x 4 without motor or sensory deficit PSYCHIATRIC: _normal mood and affect, thought process is clear and linear, patient does not appear to be responding to internal stimuli, he is calm, conversant, denies suicidal or homicidal ideation, Limitations: no limitations Course Vital Signs 04/27/24 04/27/24 04/27/24 16:04 18:19 23:03 Temperature 98.3 F 97.9 F Pulse Rate 77 74 80 Respiratory 18 18 16 Rate Blood Pressure 148/89 147/74 157/100 O2 Sat by Pulse 100 97 100 Oximetry Medical Decision Making - Medical Decision Making Was pt. sent in by a medical professional or institution (, PA, WET MILLING WHEEL OPERATOR, urgent care, hospital, or long-term...) When possible be specific @ -Patient sent by PD on court order Did you speak to anyone other than the patient for history (EMS, parent, family, police, friend...)? What history was obtained from this source @ -No Did you review nursing and triage notes (agree or disagree)? Why? @ -I reviewed and agree with nursing and triage notes Were old charts reviewed (outside hosp., previous admission, EMS record, old EKG, old radiological studies, urgent care reports/EKG's, long-term records)? Report findings @ -Patient presents with a court order for psychiatric evaluation at hospital, presents with petition from spouse stating patient has been making statements such as feeling like he is "seeing his DNA" Differential Diagnosis (chest pain, altered mental status, abdominal pain women, abdominal pain men, vaginal bleeding, weakness, fever, dyspnea, syncope, headache, dizziness, GI bleed, back pain, seizure, CVA, palpatations, mental health, musculoskeletal)? @ -Not applicable patient here for court ordered psychiatric evaluation after release from senior living X-rays interpreted by me (1pt min.). @ -None done CT interpreted by me (1pt min.). @ -None done U/S interpreted by me (1pt. min.). @ -None done What testing was considered but not performed or refused? (CT, X-rays, U/S, labs)? Why? @ -Considered UDS however patient denies illicit drug use and does not appear to be behaving as though he is under the influence of drugs or alcohol. He is not agitated, diaphoretic, excessively sleepy or lethargic, does not appear to be responding to internal stimuli, is calm, conversant, and cooperative, denies hallucinations and does not appear to be hallucinating, speech is clear, he displays no nystagmus What meds were considered but not given or refused? Why? @ -None Did you discuss the management of the patient with other professionals (cricket cheek i.e. , PA, WET MILLING WHEEL OPERATOR, lab, RT, psych nurse, social work msw, dimension specification inspector, teacher, diplomatic officer, director case)? Give summary @ -Yes, discussed with EPS RN Was smoking cessation discussed for >3mins.? @ -No Was critical care preformed (if so, how long)? @ -No Were there social determinants of health that impacted care today? How? (Homelessness, low income, unemployed, alcoholism, drug addiction, transportation, low edu. Level, literacy, decrease access to med. care, senior living, rehab)? @ -No Was there de-escalation of care discussed even if they declined (Discuss DNR or withdrawal of care, Hospice)? DNR status @ -No What co-morbidities impacted this encounter? (DM, HTN, Smoking, COPD, CAD, Cancer, CVA, ARF, Chemo, Hep., AIDS, mental health diagnosis, sleep apnea, morbid obesity)? @ -None Was patient admitted / discharged? Hospital course, mention meds given and route, prescriptions, significant lab abnormalities, going to OR and other pertinent info. @ -Patient discharged, evaluated by Chloe BLEVINS, and cleared for discharge. Patient is a 38-year-old gentleman presenting via PD with court order for psychiatric evaluation after being released from senior living. On my assessment patient is behaving appropriately, calm, cooperative, conversant. Does not appear to be responding to internal stimuli. Denies homicidal or suicidal ideation. Speech is clear. Denies hallucinations. No nonsensical speech. Thought process is clear and linear. Makes no grandiose or nonsensical statements. Undiagnosed new problem with uncertain prognosis? @ -No Drug Therapy requiring intensive monitoring for toxicity (Heparin, Nitro, Insulin, Cardizem)? @ -No Were any procedures done? @ -No Diagnosis/symptom? @ -Medical clearance exam Acute, or Chronic, or Acute on Chronic? @ -Default Uncomplicated (without systemic symptoms) or Complicated (systemic symptoms)? @ -Uncomplicated Side effects of treatment? @ -No Exacerbation, Progression, or Severe Exacerbation? @ -No Poses a threat to life or bodily function? How? (Chest pain, [place], [place], pneumonia, PE, COPD, DKA, ARF, appy, cholecystitis, CVA, Diverticulitis, Homicidal, Suicidal, threat to staff... and all critical care pts) @ -No - Lab Data Lab Results 04/27/24 Range/Units 18:26 Urine Opiates Screen Not Detected (NotDetected) Ur Oxycodone Screen Not Detected (NotDetected) Urine Methadone Screen Not Detected (NotDetected) Ur Barbiturates Screen Not Detected (NotDetected) U Tricyclic Antidepress Not Detected (NotDetected) Ur Phencyclidine Scrn Not Detected (NotDetected) Ur Amphetamines Screen Not Detected (NotDetected) U Methamphetamines Scrn Not Detected (NotDetected) U Benzodiazepines Scrn Not Detected (NotDetected) Urine Cocaine Screen Not Detected (NotDetected) U Marijuana (THC) Screen Not Detected (NotDetected) Disposition Clinical Impression: Psychiatric exam requested by authority Disposition: HOME SELF-CARE Condition: Good Is patient prescribed a controlled substance at d/c from ED?: No Referrals: Lucia Rashid MD [Primary Care Provider] - 1-2 days
[2024-04-27 23:06] VITALS: BP 157/100; PULSE 80; RESP 16; TEMP 97.9
== END 2024-04-27 23:03 | disposition home or self-care (01) ==
LOC: EC 15:39
DX: Z00.8 Encounter for other general examination (principal); Z87.891 Personal history of nicotine dependence; Z91.048 Other nonmedicinal substance allergy status
CPT/HCPCS: 80306; 82075; 99285

== ENCOUNTER 2024-05-04 09:22 | Observation (INO) | payer BC ==
[2024-05-04] MEDS ORDERED: LORazepam 2 MG/ML INJ IV PRN ×2 (09:26)
[2024-05-04 09:30] VITALS: TEMP 98.9
[2024-05-04] MEDS: PANTOPRAZOLE 40 MG/10 ML VIAL IVP STA (09:34)
[2024-05-04] MEDS: THIAMINE 100 MG/ML 2 ML VIAL IM STA (09:34)
[2024-05-04] MEDS: LORazepam 2 MG/ML INJ IV STA (09:34)
[2024-05-04] MEDS: SODIUM CHLORIDE 0.9% 1,000 ML IV STA ×2 (09:35)
--- NOTE | 2024-05-04 09:57 | ED ---
General Adult HPI - General Chief complaint: Alcohol Stated complaint: ETOH Time Seen by Provider: 05/04/24 09:23 Source: patient, EMS, RN notes reviewed, old records reviewed Mode of arrival: EMS - History of Present Illness Initial comments: Patient is a 38-year-old male presents emergency department for alcohol intoxication alcohol withdrawals. States he drinks heavily every day. Last drink a half a gallon last night at 10 PM. Has a history of withdrawal seizu res. Has been throwing up this morning and feels anxious. Denies any significant abdominal pain, chest pain, shortness of breath. Presents for further evaluation at this time. Was given Zofran as well as IV fluids by EMS. Denies any significant past medical history. - Related Data Home Medications Medication Instructions Recorded Confirmed Aspirin EC [Ecotrin Low Dose] 81 mg PO DAILY 05/04/24 05/04/24 Levalbuterol Hfa Inhaler [Xopenex 2 puff INHALATION RT-Q4H PRN 05/04/24 05/04/24 Hfa Inhaler] hydrOXYzine HCL 10 mg PO TID PRN 05/04/24 05/04/24 Allergies Allergy/AdvReac Type Severity Reaction Status Date / Time PET DANDER Allergy Uncoded 05/04/24 10:34 Review of Systems ROS Statement: Those systems with pertinent positive or pertinent negative responses have been documented in the HPI. Review of Systems: CONST: Denies fever EYES: Denies blurry vision ENT: Denies nasal congestion C/V: Denies Chest pain RESP: Denies shortness of breath GI: Denies abdominal pain : Denies dysuria SKIN: Denies rash. MSK: Endorses muscle aches NEURO: Denies headache ROS Other: All systems not noted in ROS Statement are negative. Past Medical History Past Medical History: Atrial Fibrillation, Asthma Additional Past Medical History / Comment(s): Thorasic outlet syndrome History of Any Multi-Drug Resistant Organisms: None Reported Past Surgical History: Bowel Resection Additional Past Surgical History / Comment(s): colostomy bag Past Psychological History: Unable to Obtain Smoking Status: Former smoker Past Alcohol Use History: Heavy, Occasional Past Drug Use History: Marijuana General Exam - General Exam Comments Initial Comments: General: Appears acutely toxic with alcohol as well as some mild alcohol withdrawals. HEAD: Normal with no signs of head trauma. EYES: PERRLA, EOMI, conjunctiva normal, no discharge. ENT: Hearing grossly intact, normal oropharynx. Dry mucous membranes. RESPIRATORY: Clear breath sounds bilaterally. No wheezes, rales, or rhonchi. C/V: Regular rate and rhythm. S1 and S2 auscultated, no edema, peripheral pulses 2+ and intact throughout ABD: Abd is soft, nontender, nondistended EXT: Normal range of motion, no obvious deformity SKIN: No rashes or lesions observed on exposed skin. NEURO: Alert and oriented x 4. Cranial nerves II-XII intact. No focal sensory or strength deficits. Very mild tongue fasciculations. Very mild tremors. Appears anxious. Course Vital Signs 05/04/24 05/04/24 09:24 10:00 Temperature 98.9 F Pulse Rate 108 H 109 H Respiratory 20 18 Rate Blood Pressure 126/70 138/99 O2 Sat by Pulse 97 98 Oximetry Medical Decision Making - Medical Decision Making Was pt. sent in by a medical professional or institution (, PA, CARD HANGER, urgent care, hospital, or fci...) When possible be specific @ -No Did you speak to anyone other than the patient for history (EMS, parent, family, police, friend...)? What history was obtained from this source @ -No Did you review nursing and triage notes (agree or disagree)? Why? @ -I reviewed and agree with nursing and triage notes Were old charts reviewed (outside hosp., previous admission, EMS record, old EKG, old radiological studies, urgent care reports/EKG's, fci records)? Report findings @ -Old charts reviewed including from April 04, 2024 for EKG comparison which revealed no obvious acute changes today. Differential Diagnosis (chest pain, altered mental status, abdominal pain women, abdominal pain men, vaginal bleeding, weakness, fever, dyspnea, syncope, headache, dizziness, GI bleed, back pain, seizure, CVA, palpatations, mental health, musculoskeletal)? @ -Alcohol intoxication, alcohol withdrawal, electrolyte abnormality, dehydration. This list is not all inclusive. EKG interpreted by me (3pts min.). @ -As above X-rays interpreted by me (1pt min.). @ -None done CT interpreted by me (1pt min.). @ -None done U/S interpreted by me (1pt. min.). @ -None done What testing was considered but not performed or refused? (CT, X-rays, U/S, labs)? Why? @ -None What meds were considered but not given or refused? Why? @ -None Did you discuss the management of the patient with other professionals (professionals i.e. , PA, CARD HANGER, lab, RT, psych nurse, social media project manager, hostess, teacher, combat systems officer, case briefer)? Give summary @ - I spoke with the admitting physician, Dr. Tabor of [facility] who accepted the admi ssion. Was smoking cessation discussed for >3mins.? @ -No Was critical care preformed (if so, how long)? @ -No Were there social determinants of health that impacted care today? How? (Homelessness, low income, unemployed, alcoholism, drug addiction, transportation, low edu. Level, literacy, decrease access to med. care, half-way, rehab)? @ -No Was there de-escalation of care discussed even if they declined (Discuss DNR or withdrawal of care, Hospice)? DNR status @ -No What co-morbidities impacted this encounter? (DM, HTN, Smoking, COPD, CAD, Cancer, CVA, ARF, Chemo, Hep., AIDS, mental health diagnosis, sleep apnea, morbid obesity)? @ -Alcohol abuse Was patient admitted / discharged? Hospital course, mention meds given and route, prescriptions, significant lab abnormalities, going to OR and other pertinent info. @ -Patient presents with alcohol intoxication and alcohol withdrawals with a history of alcohol withdrawal seizures. CIWA is currently 11. Vital signs within acceptable limits except for mild tachycardia. Will place the patient on CIWA protocol and administer IV Ativan. Will obtain abdominal labs. Patient also received IV fluids at this time as well as Protonix. Patient currently not nauseous as he received Zofran on arrival. Patient was in agreement this plan. EKG shows no signs of acute ischemia.Patient's laboratory studies remarkable for mild leukocytosis of 13 which is probably nonspecific. Elevated AST and ALT in the setting of chronic alcohol abuse. Alcohol level less than 10. On reevaluation, withdrawal symptoms are improved. However I did recommend admission at this time due to the nausea and vomiting at home as well as history of alcohol drawl seizures. He was in agreement this plan. We will continue on CIWA protocol. I spoke with the admitting physician, Dr. Tabor of [facility] who accepted the admission. Undiagnosed new problem with uncertain prognosis? @ -No Drug Therapy requiring intensive monitoring for toxicity (Heparin, Nitro, Insu sherry, Cardizem)? @ -No Were any procedures done? @ -No Diagnosis/symptom? @ - alcohol withdrawals Acute, or Chronic, or Acute on Chronic? @ -Acute Uncomplicated (without systemic symptoms) or Complicated (systemic symptoms)? @ -Complicated Side effects of treatment? @ -No Exacerbation, Progression, or Severe Exacerbation? @ -No Poses a threat to life or bodily function? How? (Chest pain, USA, DC, pneumonia, PE, COPD, DKA, ARF, appy, cholecystitis, CVA, Diverticulitis, Homicidal, Suicidal, threat to staff... and all critical care pts) @ -Yes - Lab Data Result diagrams: 05/04/24 09:50 05/04/24 09:50 Lab Results 05/04/24 05/04/24 05/04/24 Range/Units 09:50 09:50 09:50 WBC 13.1 H (3.8-10.6) k/uL RBC 4.95 (4.30-5.90) m/uL Hgb 13.9 (13.0-17.5) gm/dL Hct 42.5 (39.0-53.0) % MCV 85.9 (80.0-100.0) fL MCH 28.1 (25.0-35.0) pg MCHC 32.8 (31.0-37.0) g/dL RDW 17.1 H (11.5-15.5) % Plt Count 359 (150-450) k/uL MPV 7.0 Neutrophils % 93 % Lymphocytes % 3 % Monocytes % 2 % Eosinophils % 1 % Basophils % 0 % Neutrophils # 12.2 H (1.3-7.7) k/uL Lymphocytes # 0.4 L (1.0-4.8) k/uL Monocytes # 0.3 (0-1.0) k/uL Eosinophils # 0.2 (0-0.7) k/uL Basophils # 0.0 (0-0.2) k/uL Anisocytosis Slight PT 11.1 (10.0-12.5) sec INR 1.0 (<1.2) APTT 23.1 (22.0-30.0) sec Sodium (137-145) mmol/L Potassium (3.5-5.1) mmol/L Chloride (98-107) mmol/L Carbon Dioxide (22-30) mmol/L Anion Gap mmol/L BUN (9-20) mg/dL Creatinine (0.66-1.25) mg/dL Est GFR (CKD-EPI)AfAm (>60 ml/min/1.73 sqM) Est GFR (CKD-EPI)NonAf (>60 ml/min/1.73 sqM) Glucose (74-99) mg/dL Calcium (8.4-10.2) mg/dL Total Bilirubin (0.2-1.3) mg/dL AST (17-59) U/L ALT (4-49) U/L Alkaline Phosphatase (38-126) U/L Total Protein (6.3-8.2) g/dL Albumin (3.5-5.0) g/dL Amylase (30-110) U/L Lipase (23-300) U/L Urine Color Yellow Urine Appearance Clear (Clear) Urine pH 6.5 (5.0-8.0) Ur Specific [place] 1.020 (1.001-1.035) Urine Protein 2+ H (Negative) Urine Glucose (UA) Negative (Negative) Urine Ketones Negative (Negative) Urine Blood Small H (Negative) Urine Nitrite Negative (Negative) Urine Bilirubin Negative (Negative) Urine Urobilinogen <2.0 (<2.0) mg/dL Ur Leukocyte Esterase Negative (Negative) Urine WBC 2 (0-5) /hpf Hyaline Casts 9 H (0-2) /lpf Urine Mucus Few H (None) /hpf Serum Alcohol mg/dL 05/04/24 Range/Units 09:50 WBC (3.8-10.6) k/uL RBC (4.30-5.90) m/uL Hgb (13.0-17.5) gm/dL Hct (39.0-53.0) % MCV (80.0-100.0) fL MCH (25.0-35.0) pg MCHC (31.0-37.0) g/dL RDW (11.5-15.5) % Plt Count (150-450) k/uL MPV Neutrophils % % Lymphocytes % % Monocytes % % Eosinophils % % Basophils % % Neutrophils # (1.3-7.7) k/uL Lymphocytes # (1.0-4.8) k/uL Monocytes # (0-1.0) k/uL Eosinophils # (0-0.7) k/uL Basophils # (0-0.2) k/uL Anisocytosis PT (10.0-12.5) sec INR (<1.2) APTT (22.0-30.0) sec Sodium 136 L (137-145) mmol/L Potassium 3.8 (3.5-5.1) mmol/L Chloride 98 (98-107) mmol/L Carbon Dioxide 29 (22-30) mmol/L Anion Gap 9 mmol/L BUN 22 H (9-20) mg/dL Creatinine 0.78 (0.66-1.25) mg/dL Est GFR (CKD-EPI)AfAm >90 (>60 ml/min/1.73 sqM) Est GFR (CKD-EPI)NonAf >90 (>60 ml/min/1.73 sqM) Glucose 115 H (74-99) mg/dL Calcium 9.4 (8.4-10.2) mg/dL Total Bilirubin 1.0 (0.2-1.3) mg/dL AST 115 H (17-59) U/L ALT 62 H (4-49) U/L Alkaline Phosphatase 80 (38-126) U/L Total Protein 6.4 (6.3-8.2) g/dL Albumin 4.4 (3.5-5.0) g/dL Amylase 100 (30-110) U/L Lipase 101 (23-300) U/L Urine Color Urine Appearance (Clear) Urine pH (5.0-8.0) Ur Specific [place] (1.001-1.035) Urine Protein (Negative) Urine Glucose (UA) (Negative) Urine Ketones (Negative) Urine Blood (Negative) Urine Nitrite (Negative) Urine Bilirubin (Negative) Urine Urobilinogen (<2.0) mg/dL Ur Leukocyte Esterase (Negative) Urine WBC (0-5) /hpf Hyaline Casts (0-2) /lpf Urine Mucus (None) /hpf Serum Alcohol <10 mg/dL - EKG Data -: EKG Interpreted by Ne EKG Comments: 12-lead Electrocardiogram Interpretation Note EKG was reviewed and interpreted by myself. 12-lead ECG performed at 0930 is interpreted by me as revealing normal sinus rhythm at a rate of 96 beats per minute. [place] is normal. MI interval is 134 ms, QRS durations 89 ms, QTc is 391 ms.. There were no ST or T wave abnormalities to suggest myocardial ischemia or injury. R wave progression across the precordium was satisfactory. By my interpretation this EKG is non-diagnostic for acute ischemia. No significant change when compared with EKG from April 04, 2024. Disposition Clinical Impression: Alcohol withdrawal Disposition: ADMITTED IP TO THIS HOSP Condition: Stable Time of Disposition: 10:50
[2024-05-04 10:07] LABS: Anisocytosis Slight; Basophils % (A) 0 %; Eosinophils # (A) 0.2 k/uL (0-0.7); Eosinophils % (A) 1 %; HCT 42.5 % (39.0-53.0); HGB 13.9 gm/dL (13.0-17.5); Lymphocytes # (A) 0.4 k/uL (1.0-4.8); Lymphocytes % (A) 3 %; MCH 28.1 pg (25.0-35.0); MCHC 32.8 g/dL (31.0-37.0); MCV 85.9 fL (80.0-100.0); Monocytes # (A) 0.3 k/uL (0-1.0); Monocytes % (A) 2 %; Neutrophils # (A) 12.2 k/uL (1.3-7.7); Neutrophils % (A) 93 %; Platelet Count 359 k/uL (150-450); RBC 4.95 m/uL (4.30-5.90); RDW 17.1 % (11.5-15.5); WBC 13.1 k/uL (3.8-10.6)
[2024-05-04 10:19] LABS: Partial Thromboplastin Time 23.1 sec (22.0-30.0); Prothrombin Time 11.1 sec (10.0-12.5)
[2024-05-04 10:21] LABS: ALT 62 U/L (4-49); AST 115 U/L (17-59); African American GFR (CKD) >90 (>60 ml/min/1.73 sqM); Albumin 4.4 g/dL (3.5-5.0); Alcohol <10 mg/dL; Alkaline Phosphatase 80 U/L (38-126); Amylase 100 U/L (30-110); Anion Gap 9 mmol/L; Blood Urea Nitrogen 22 mg/dL (9-20); Calcium 9.4 mg/dL (8.4-10.2); Carbon Dioxide 29 mmol/L (22-30); Chloride 98 mmol/L (98-107); Glucose 115 mg/dL (74-99); Lipase 101 U/L (23-300); Non-African American GFR(CKD) >90 (>60 ml/min/1.73 sqM); Potassium 3.8 mmol/L (3.5-5.1); Sodium 136 mmol/L (137-145); Total Protein 6.4 g/dL (6.3-8.2)
[2024-05-04 10:33] VITALS: BP 138/99; PULSE 109; RESP 18
[2024-05-04] MEDS ORDERED: ONDANSETRON 4 MG/2 ML VIAL IVP PRN (10:50)
[2024-05-04] MEDS ORDERED: NALOXONE 0.4 MG/ML 1 ML VIAL IV PRN (10:50)
[2024-05-04] MEDS ORDERED: ALBUTEROL HFA INHALER INHALATION PRN (10:53)
[2024-05-04] MEDS ORDERED: hydrOXYzine HCL 10 MG TAB PO PRN (10:53)
[2024-05-04] MEDS: NICOTINE 21MG/24HR PATCH TRANSDERM STA (11:06)
[2024-05-04 11:21] LABS: Appearance,Urine Clear (Clear); Bilirubin,Urine Negative (Negative); Blood,Urine Small (Negative); Color,Urine Yellow; Glucose,Urine (UA) Negative (Negative); Hyaline Casts,Urine 9 /lpf (0-2); Ketones,Urine Negative (Negative); Leukocyte Esterase,Urine Negative (Negative); Mucus,Urine Few /hpf; Nitrite,Urine Negative (Negative); PH, Urine 6.5 (5.0-8.0); Protein,Urine 2+ (Negative); Urobilinogen,Urine <2.0 mg/dL (<2.0); WBC,Urine 2 /hpf (0-5)
[2024-05-04] MEDS: LORazepam 2 MG/ML INJ IV PRN (12:20)
--- NOTE | 2024-05-04 23:11 | P.HPIM ---
History of Present Illness H&P Date: 05/04/24 Chief Complaint: Anxiety Patient is a 38-year-old male with known history of asthma, paroxysmal atrial fibrillation on aspirin, thoracic outlet syndrome, prior history of smoking and occasional heavy alcohol use and marijuana use presents to ER due to alcohol intoxication and withdrawals. Patient does drink about half a gallon of alcohol every day. His last drink was about 10 PM last night. Patient felt very anxious this morning and started having withdrawal symptoms. Presented to the ER for further evaluation. Otherwise denies any complaints of nausea or vomiting. No chest pain or shortness of breath. No leg swelling. Patient was brought to ED by EMS. Patient states that he has been going through dialysis and has been stressful. He has been drinking heavily recently. He does want to go to rehab. Patient does take hydroxyzine for anxiety at home. EKG showed normal sinus rhythm. Laboratory data showed WBC 13.1 hemoglobin 13.9 and platelets 359 Sodium 136 potassium 3.8 chloride 98 bicarb is 29 BUN 22 and creatinine 0.78 and blood sugar is 115, AST 115 ALT 62 and alk phos 80 and lipase 101 Urinalysis is negative for infection Serum alcohol level is less than 10. Review of Systems Constitutional: Patient denies any fever or chills . No generalized weakness or weight loss. Abdomen: Patient denied nausea vomiting and diarrhea and abdominal pain. Cardiovascular: Patient denies any chest pain or short of breath no palpitations. Respiratory: patient denied any cough or sputum production. No shortness of breath Neurologic: Patient denied any numbness or tingling. no headache. Musculoskeletal: Patient denies any complaints of joint swelling or deformity. Skin: Negative Psychiatric: Anxious and stressful. Endocrine: No heat or cold intolerance. No recent weight gain. Genitourinary: No dysuria or hematuria. All other 14 point ROS negative except the above Past Medical History Past Medical History: Atrial Fibrillation, Asthma Additional Past Medical History / Comment(s): Thorasic outlet syndrome History of Any Multi-Drug Resistant Organisms: None Reported Past Surgical History: Bowel Resection Additional Past Surgical History / Comment(s): colostomy bag Past Psychological History: Unable to Obtain Smoking Status: Former smoker Past Alcohol Use History: Heavy, Occasional Past Drug Use History: Marijuana Medications and Allergies Home Medications Medication Instructions Recorded Confirmed Type Aspirin EC [Ecotrin Low Dose] 81 mg PO DAILY 05/04/24 05/04/24 History Levalbuterol Hfa Inhaler [Xopenex 2 puff INHALATION RT-Q4H PRN 05/04/24 05/04/24 History Hfa Inhaler] hydrOXYzine HCL 10 mg PO TID PRN 05/04/24 05/04/24 History Allergies Allergy/AdvReac Type Severity Reaction Status Date / Time PET DANDER Allergy Unknown Uncoded 05/05/24 11:03 Physical Exam Vitals: Vital Signs Temp Pulse Resp BP Pulse Ox 05/04/24 10:00 109 H 18 138/99 98 05/04/24 09:24 98.9 F 108 H 20 126/70 97 Intake and Output 05/04/24 05/04/24 05/04/24 06:59 14:59 22:59 Other: Weight 90.718 kg PHYSICAL EXAMINATION: Patient is lying in the bed comfortably, no acute distress, awake alert and oriented but anxious.. HEENT: Normocephalic. Neck is supple. Pupils reactive. Nostrils clear. Oral cavity is moist. Neck reveals no JVD, carotid bruits, or thyromegaly. CHEST EXAMINATION: Trachea is central. Symmetrical expansion. Lung garsia clear to auscultation and percussion. CARDIAC: Normal S1, S2 with no gallops. No murmurs ABDOMEN: Soft. Bowel sounds normal. No organomegaly. No abdominal bruits. Extremities: reveal no edema. No clubbing or cyanosis Neurologically awake, alert, oriented x3 with well-coordinated movements. No focal deficits noted Skin: No rash or skin lesions. Psychiatric: Coperative. Nonsuicidal Musculoskeletal: No joint swelling or deformity. Normal range of motion. Results CBC & Chem 7: 05/04/24 09:50 05/04/24 09:50 Labs: Abnormal Lab Results - Last 24 Hours (Table) 05/04/24 05/04/24 05/04/24 Range/Units 09:50 09:50 09:50 WBC 13.1 H (3.8-10.6) k/uL RDW 17.1 H (11.5-15.5) % Neutrophils # 12.2 H (1.3-7.7) k/uL Lymphocytes # 0.4 L (1.0-4.8) k/uL Sodium 136 L (137-145) mmol/L BUN 22 H (9-20) mg/dL Glucose 115 H (74-99) mg/dL AST 115 H (17-59) U/L ALT 62 H (4-49) U/L Urine Protein 2+ H (Negative) Urine Blood Small H (Negative) Hyaline Casts 9 H (0-2) /lpf Urine Mucus Few H (None) /hpf Thrombosis Risk Factor Assmnt - DVT/VTE Prophylaxis DVT/VTE Prophylaxis: Pharmacologic Prophylaxis ordered Assessment and Plan Assessment: Acute alcohol withdrawal symptoms Alcoholic hepatitis with elevated AST greater than ALT Mild leukocytosis likely reactive Paroxysmal atrial fibrillation as per history. Patient is on aspirin at home. Anxiety Heavy alcohol use Marijuana use History of smoking DVT prophylaxis with heparin subcu and GI prophylaxis Pepcid Plan: Patient will be continued on IV hydration. Continue thiamine and multivitamins. Continue to monitor for alcohol withdrawal symptoms and CIWA protocol. Urinalysis is negative infection. Follow-up liver enzymes. Follow-up CBC and CMP tomorrow. Patient would like to go to rehab. Social work will be consulted. Continue to follow closely. Alcohol abstinence has been counseled extensively. Time with Patient: Greater than 30
[2024-05-05] MEDS ORDERED: PANTOPRAZOLE 40 MG/10 ML VIAL IV SCH (09:00)
[2024-05-05] MEDS ORDERED: ASPIRIN 81 MG PO SCH (09:00)
[2024-05-05] MEDS ORDERED: THIAMINE 100 MG TAB PO SCH (09:00)
--- NOTE | 2024-05-09 01:01 | P.DS ---
Providers Date of admission: 05/04/24 10:50 Expected date of discharge: 05/04/24 Attending physician: Triston Tabor Primary care physician: Lucia Rashid MD Hospital Course: Discharge diagnosis and hospital course Acute alcohol withdrawal symptoms Alcoholic hepatitis with elevated AST greater than ALT Mild leukocytosis likely reactive Paroxysmal atrial fibrillation as per history. Patient is on aspirin at home. Anxiety Heavy alcohol use Marijuana use History of smoking DVT prophylaxis with heparin subcu and GI prophylaxis Pepcid Patient was continued on IV hydration. Continue thiamine and multivitamins. Continue to monitor for alcohol withdrawal symptoms and CIWA protocol. Urinalysis is negative infection. Follow-up liver enzymes. Follow-up CBC and CMP tomorrow. Patient would like to go to rehab. Social work will be consulted. Continue to follow closely. Alcohol abstinence has been counseled extensively. Patient left AMA Patient Condition at Discharge: Stable Plan - Discharge Summary New Discharge Prescriptions: No Action Levalbuterol Hfa Inhaler [Xopenex Hfa Inhaler] 2 puff INHALATION RT-Q4H PRN PRN Reason: Shortness Of Breath Aspirin EC [Ecotrin Low Dose] 81 mg PO DAILY hydrOXYzine HCL 10 mg PO TID PRN PRN Reason: Anxiety Discharge Medication List Aspirin EC [Ecotrin Low Dose] 81 mg PO DAILY 05/04/24 [History] Levalbuterol Hfa Inhaler [Xopenex Hfa Inhaler] 2 puff INHALATION RT-Q4H PRN 05/04/24 [History] hydrOXYzine HCL 10 mg PO TID PRN 05/04/24 [History] Follow up Appointment(s)/Referral(s): Lucia Rashid MD [Primary Care Provider] - 1-2 days Patient Instructions/Handouts: Alcohol Withdrawal (ED) Discharge Disposition: LEFT AGAINST MEDICAL ADVICE
== END 2024-05-04 17:30 | disposition left against medical advice (07) ==
LOC: EC 09:22 → 6NMEDSUR 10:50
PROVIDERS: ADMIT Internal Medicine; ATTEND Internal Medicine
DX: F10.139 Alcohol abuse with withdrawal, unspecified (principal); K70.10 Alcoholic hepatitis without ascites; I48.0 Paroxysmal atrial fibrillation; D72.829 Elevated white blood cell count, unspecified; J45.909 Unspecified asthma, uncomplicated; G54.0 Brachial plexus disorders; F12.90 Cannabis use, unspecified, uncomplicated; F41.9 Anxiety disorder, unspecified; Y90.0 Blood alcohol level of less than 20 mg/100 ml; Z53.29 Procedure and treatment not carried out because of patient's decision for other reasons; Z79.82 Long term (current) use of aspirin; Z91.048 Other nonmedicinal substance allergy status; Z86.69 Personal history of other diseases of the nervous system and sense organs; Z87.891 Personal history of nicotine dependence
CPT/HCPCS: 96376; 96361; 96374; 96375; 99285; 36415; 93005; 80053; 82150; 83690; 85025; 85610; 85730; 81001; 80320; G0378; S4990; J2060; J3411; J2470

== ENCOUNTER 2024-05-05 10:43 | Emergency (ER) | payer BC ==
--- NOTE | 2024-05-05 11:04 | ED ---
Alcohol HPI - General Chief Complaint: Alcohol Stated Complaint: ETOH Time Seen by Provider: 05/05/24 11:01 Source: patient, RN notes reviewed Mode of arrival: EMS Limitations: no limitations - History of Present Illness Initial Comments: 38-year-old male presents emergency department via EMS for chief complaint of alcohol withdrawal. Patient is unaware of when his last alcoholic beverage was, states that it was sometime yesterday. Currently he is denying nausea, vomiting, tremors. States that he has a headache. Patient does have a history of seizures from alcohol withdrawal. On discussion with the patient he sates that he is hungry and is requesting a sandwich. - Related Data Home Medications Medication Instructions Recorded Confirmed Aspirin EC [Ecotrin Low Dose] 81 mg PO DAILY 05/04/24 05/04/24 Levalbuterol Hfa Inhaler [Xopenex 2 puff INHALATION RT-Q4H PRN 05/04/24 05/04/24 Hfa Inhaler] hydrOXYzine HCL 10 mg PO TID PRN 05/04/24 05/04/24 Allergies Allergy/AdvReac Type Severity Reaction Status Date / Time PET DANDER Allergy Unknown Uncoded 05/05/24 11:03 Review of Systems ROS Statement: Those systems with pertinent positive or pertinent negative responses have been documented in the HPI. ROS Other: All systems not noted in ROS Statement are negative. Past Medical History Past Medical History: Atrial Fibrillation, Asthma Additional Past Medical History / Comment(s): Thorasic outlet syndrome History of Any Multi-Drug Resistant Organisms: None Reported Past Surgical History: Bowel Resection Additional Past Surgical History / Comment(s): colostomy bag Past Psychological History: Unable to Obtain Smoking Status: Former smoker Past Alcohol Use History: Heavy, Occasional Past Drug Use History: Marijuana General Exam - General Exam Comments Initial Comments: Visual Physical Exam Vital signs reviewed General: ill-appearing, nontoxic, no acute distress. Head: Normocephalic, atraumatic Eyes: PERRLA, EOMI ENT: Airway patent Chest: Nonlabored breathing Skin: No visual rash, normal skin tone Neuro: Alert and oriented 3 Musculoskeletal: No gross abnormalities Limitations: no limitations General appearance: alert, in no apparent distress, appears intoxicated Head exam: Present: atraumatic, normocephalic, normal inspection Eye exam: Present: normal appearance, PERRL, EOMI. Absent: scleral icterus, conjunctival injection, periorbital swelling ENT exam: Present: normal exam, mucous membranes moist Neck exam: Present: normal inspection. Absent: tenderness, meningismus, lymphadenopathy Respiratory exam: Present: normal lung sounds bilaterally. Absent: respiratory distress, wheezes, rales, rhonchi, stridor Cardiovascular Exam: Present: regular rate, normal rhythm, normal heart sounds. Absent: systolic murmur, diastolic murmur, rubs, gallop, clicks GI/Abdominal exam: Present: soft, normal bowel sounds. Absent: distended, tenderness, guarding, rebound, rigid Extremities exam: Present: normal inspection, full ROM, normal capillary refill. Absent: tenderness, pedal edema, joint swelling, calf tenderness Back exam: Present: normal inspection Neurological exam: Present: alert, oriented X3, CN II-XII intact Psychiatric exam: Present: normal affect, normal mood Skin exam: Present: warm, dry, intact, normal color. Absent: rash Course Vital Signs 05/05/24 05/05/24 10:59 15:30 Temperature 97.9 F Pulse Rate 101 H 108 H Respiratory 16 18 Rate Blood Pressure 139/93 150/77 O2 Sat by Pulse 98 97 Oximetry Medical Decision Making - Medical Decision Making Was pt. sent in by a medical professional or institution (, PA, WEEKEND CAREGIVER, urgent care, hospital, or prison...) When possible be specific @ -No Did you speak to anyone other than the patient for history (EMS, parent, family, police, friend...)? What history was obtained from this source @ -No Did you review nursing and triage notes (agree or disagree)? Why? @ -I reviewed and agree with nursing and triage notes Were old charts reviewed (outside hosp., previous admission, EMS record, old EKG, old radiological studies, urgent care reports/EKG's, prison records)? Report findings @ -The patient's previous emergency department visit where he was left AGAINST MEDICAL ADVICE and did not state the duration of the visit. Differential Diagnosis (chest pain, altered mental status, abdominal pain women, abdominal pain men, vaginal bleeding, weakness, fever, dyspnea, syncope, headache, dizziness, GI bleed, back pain, seizure, CVA, palpatations, mental health, musculoskeletal)? @ -Differential Altered Mental Status: Hypoglycemia, DKA, hypercapnia, ETOH, overdose, CO poisoning, trauma, myxedema coma, HTN encephalopathy, infection, encephalitis, psychosis, intercranial hemorrhage, hepatic encephalopathy, meningitis, CVA, this is not meant to be an all-inclusive list EKG interpreted by me (3pts min.). @ -none X-rays interpreted by me (1pt min.). @ -None done CT interpreted by me (1pt min.). @ -None done U/S interpreted by me (1pt. min.). @ -None done What testing was considered but not performed or refused? (CT, X-rays, U/S, labs)? Why? @ -None What meds were considered but not given or refused? Why? @ -None Did you discuss the management of the patient with other professionals (professionals i.e. , PA, WEEKEND CAREGIVER, lab, RT, psych nurse, social media editor, family lawyer, teacher, protection officer, pillowcase cutter)? Give summary @ -Will coordinate with case management, Elvira, Patient's case. She had multiple discussions with the patient and he is requesting that he leave the hospital as outpatient follow-up scheduled with his therapist for further evaluation. Was smoking cessation discussed for >3mins.? @ -No Was critical care preformed (if so, how long)? @ -No Were there social determinants of health that impacted care today? How? (Homelessness, low income, unemployed, alcoholism, drug addiction, transportat ion, low edu. Level, literacy, decrease access to med. care, [facility], rehab)? @ -No Was there de-escalation of care discussed even if they declined (Discuss DNR or withdrawal of care, Hospice)? DNR status @ -No What co-morbidities impacted this encounter? (DM, HTN, Smoking, COPD, CAD, Cancer, CVA, ARF, Chemo, Hep., AIDS, mental health diagnosis, sleep apnea, morbid obesity)? @ -alcohol abuse Was patient admitted / discharged? Hospital course, mention meds given and route, prescriptions, significant lab abnormalities, going to OR and other pertinent info. @ -Discharged. 38-year-old male with alcohol abuse and alcohol intoxication. I discussed with the patient he appears to be acutely intoxicated. He is stating that he feels anxious at this time and is requesting something to eat. Patient is symptomatically treated with fluids, Ativan, Zofran pending results of labs. CBC and CMP unremakrable, amylase and lipase within normal limits. Serum alcohol elevated at 279 which correlates to a time of sober 11 hours after. On discussion with the patient he states that he feels stable for discharge home and is scheduled outpatient arrangements with his therapist. Additionally case management had numerous discussions with the patient. Patient is stable for discharge at this time. All questions answered at bedside and strict return. The patient has verbalized understanding. Discussed with Dr. Oleary Undiagnosed new problem with uncertain prognosis? @ -No Drug Therapy requiring intensive monitoring for toxicity (Heparin, Nitro, Insulin, Cardizem)? @ -No Were any procedures done? @ -No Diagnosis/symptom? @ -alcohol intoxication Acute, or Chronic, or Acute on Chronic? @ -Acute Uncomplicated (without systemic symptoms) or Complicated (systemic symptoms)? @ -uncomplicated Side effects of treatment? @ -No Exacerbation, Progression, or Severe Exacerbation? @ -No Poses a threat to life or bodily function? How? (Chest pain, [place], [place], pneumonia, PE, COPD, DKA, ARF, appy, cholecystitis, CVA, Diverticulitis, Homicidal, Suicidal, threat to staff... and all critical care pts) @ -No - Lab Data Result diagrams: 05/05/24 13:07 05/05/24 13:03 Lab Results 05/05/24 05/05/24 Range/Units 13:03 13:07 WBC 4.7 (3.8-10.6) k/uL RBC 5.08 (4.30-5.90) m/uL Hgb 13.9 (13.0-17.5) gm/dL Hct 44.0 (39.0-53.0) % MCV 86.7 (80.0-100.0) fL MCH 27.5 (25.0-35.0) pg MCHC 31.7 (31.0-37.0) g/dL RDW 17.5 H (11.5-15.5) % Plt Count 298 (150-450) k/uL MPV 7.0 Neutrophils % 73 % Lymphocytes % 19 % Monocytes % 5 % Eosinophils % 2 % Basophils % 1 % Neutrophils # 3.4 (1.3-7.7) k/uL Lymphocytes # 0.9 L (1.0-4.8) k/uL Monocytes # 0.3 (0-1.0) k/uL Eosinophils # 0.1 (0-0.7) k/uL Basophils # 0.0 (0-0.2) k/uL Anisocytosis Slight Sodium 140 (137-145) mmol/L Potassium 4.1 (3.5-5.1) mmol/L Chloride 105 (98-107) mmol/L Carbon Dioxide 26 (22-30) mmol/L Anion Gap 9 mmol/L BUN 15 (9-20) mg/dL Creatinine 0.68 (0.66-1.25) mg/dL Est GFR (CKD-EPI)AfAm >90 (>60 ml/min/1.73 sqM) Est GFR (CKD-EPI)NonAf >90 (>60 ml/min/1.73 sqM) Glucose 113 H (74-99) mg/dL Calcium 8.6 (8.4-10.2) mg/dL Phosphorus 2.5 (2.5-4.5) mg/dL Magnesium 2.2 (1.6-2.3) mg/dL Total Bilirubin 0.8 (0.2-1.3) mg/dL AST 74 H (17-59) U/L ALT 53 H (4-49) U/L Alkaline Phosphatase 106 (38-126) U/L Total Protein 6.5 (6.3-8.2) g/dL Albumin 4.3 (3.5-5.0) g/dL Lipase 188 (23-300) U/L Serum Alcohol 279 H* mg/dL Disposition Clinical Impression: Alcoholic intoxication Disposition: HOME SELF-CARE Condition: Good Instructions (If sedation given, give patient instructions): Alcohol Intoxication (ED) Additional Instructions: Return to the emergency department for any new or worsening symptoms. Is patient prescribed a controlled substance at d/c from ED?: No Referrals: Lucia Rashid MD [Primary Care Provider] - 1-2 days Time of Disposition: 17:44
[2024-05-05 13:13] LABS: Anisocytosis Slight; Basophils % (A) 1 %; Eosinophils # (A) 0.1 k/uL (0-0.7); Eosinophils % (A) 2 %; HGB 13.9 gm/dL (13.0-17.5); Lymphocytes # (A) 0.9 k/uL (1.0-4.8); Lymphocytes % (A) 19 %; MCH 27.5 pg (25.0-35.0); MCHC 31.7 g/dL (31.0-37.0); MCV 86.7 fL (80.0-100.0); Monocytes # (A) 0.3 k/uL (0-1.0); Monocytes % (A) 5 %; Neutrophils # (A) 3.4 k/uL (1.3-7.7); Neutrophils % (A) 73 %; Platelet Count 298 k/uL (150-450); RBC 5.08 m/uL (4.30-5.90); RDW 17.5 % (11.5-15.5); WBC 4.7 k/uL (3.8-10.6)
[2024-05-05 13:27] LABS: ALT 53 U/L (4-49); AST 74 U/L (17-59); African American GFR (CKD) >90 (>60 ml/min/1.73 sqM); Albumin 4.3 g/dL (3.5-5.0); Alkaline Phosphatase 106 U/L (38-126); Anion Gap 9 mmol/L; Blood Urea Nitrogen 15 mg/dL (9-20); Calcium 8.6 mg/dL (8.4-10.2); Carbon Dioxide 26 mmol/L (22-30); Chloride 105 mmol/L (98-107); Glucose 113 mg/dL (74-99); Lipase 188 U/L (23-300); Magnesium 2.2 mg/dL (1.6-2.3); Non-African American GFR(CKD) >90 (>60 ml/min/1.73 sqM); Phosphorus 2.5 mg/dL (2.5-4.5); Potassium 4.1 mmol/L (3.5-5.1); Sodium 140 mmol/L (137-145); Total Bilirubin 0.8 mg/dL (0.2-1.3); Total Protein 6.5 g/dL (6.3-8.2)
[2024-05-05 13:31] LABS: Alcohol 279 mg/dL
[2024-05-05 15:32] VITALS: RESP 18
[2024-05-05] MEDS: ONDANSETRON 4 MG/2 ML VIAL IVP STA (15:49)
[2024-05-05] MEDS: SODIUM CHLORIDE 0.9% 1,000 ML IV STA (15:49)
[2024-05-05] MEDS: LORazepam 2 MG/ML INJ IV STA (15:50)
[2024-05-05 17:47] VITALS: BP 132/73; PULSE 104; TEMP 98
== END 2024-05-05 17:47 | disposition home or self-care (01) ==
LOC: EC 10:43
DX: F10.129 Alcohol abuse with intoxication, unspecified (principal); Z91.09 Other allergy status, other than to drugs and biological substances; Z87.891 Personal history of nicotine dependence
CPT/HCPCS: 36415; 80053; 83690; 83735; 84100; 85025; 80320; 99285; 96374; 96375; 96361; J2060; J2405